=== PATIENT | male | born 1970 | race Caucasian/White ===

== ENCOUNTER 2019-07-05 16:51 | Emergency (ER) | payer SELFPAY ==
[2019-07-05] MEDS ORDERED: KETOROLAC 30 MG/ML INJ ONE (17:16)
--- NOTE | 2019-07-05 17:36 | ER ---
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 Transition of care: patient was not received from another setting of care. Onset of symptoms was July 05, 2019. Risk Assessment: Do you want to hurt yourself or someone else? Patient reports no desire to harm self or others. Initial Sepsis Screen: Does the patient meet any 2 criteria? No. Patient's initial sepsis screen is negative. Does the patient have a suspected source of infection? No. Patient's initial sepsis screen is negative. Care prior to arrival: None. 16:57 Method Of Arrival: Ambulatory la1 16:57 Acuity: LEISA 4 la1 Historical: - Allergies: 16:58 No Known Allergies; la1 - PMHx: 16:58 Hypertension; la1 - Immunization history:: Adult Immunizations up to date. - Social history:: Smoking status: Patient uses tobacco products, smokes one pack cigarettes per day. - Ebola Screening: : No symptoms or risks identified at this time. - Family history:: not pertinent. Screenin:15 Abuse screen: Denies threats or abuse. Nutritional screening: No deficits noted. aa5 Tuberculosis screening: No symptoms or risk factors identified. Fall Risk None identified. Assessment: 17:15 General: Appears uncomfortable, Behavior is calm, cooperative. Pain: Complains of pain aa5 in right shoulder Pain does not radiate. Pain currently is 3 out of 10 on a pain scale. Quality of pain is described as sharp, Is continuous. Neuro: Level of Consciousness is awake, alert, obeys commands, Oriented to person, place, time, situation. Cardiovascular: Patient's skin is warm and dry. Respiratory: Airway is patent Respiratory effort is even, unlabored, Respiratory pattern is regular, symmetrical. GI: No signs and/or symptoms were reported involving the gastrointestinal system. : No signs and/or symptoms were reported regarding the genitourinary system. EENT: No signs and/or symptoms were reported regarding the EENT system. Derm: Skin is pink, warm \T\ dry. Musculoskeletal: Reports pain in right shoulder. 18:10 Reassessment: Patient is alert, oriented x 3, equal unlabored respirations, skin aa5 warm/dry/pink. 18:10 Reassessment: sling applied to right arm. . aa5 Vital Signs: 16:59 BP 169 / 100; Pulse 82; Resp 16; Temp 98.6; Pulse Ox 98% on R/A; Weight 88.45 kg; la1 Height 5 ft. 4 in. (162.56 cm); Pain 3/10; 18:10 BP 168 / 80; Pulse 84; Resp 18 S; Pulse Ox 98% on R/A; aa5 16:59 Body Mass Index 33.47 (88.45 kg, 162.56 cm) la1 ED Course: 16:57 Patient arrived in ED. as 16:58 Triage completed. la1 16:58 Arm band placed on left wrist. la1 17:00 Joshua Greene MD is Attending Physician. danny 17:09 Sabina Mcdonald, JUANJO is Primary Nurse. aa5 17:15 Patient has correct armband on for positive identification. Bed in low position. Call aa5 light in reach. Side rails up X 1. 17:25 Shoulder Right (2 View) XRAY In Process Unspecified. EDMS 17:36 Esau Bolanos MD is Referral Physician. danny 18:10 No provider procedures requiring assistance completed. Patient did not have IV access aa5 during this emergency room visit. Administered Medications: 17:22 Drug: TORadol 60 mg Route: IM; Site: right gluteus; aa5 17:45 Follow up: Response: No adverse reaction aa5 Outcome: 17:36 Discharge ordered by . danny 18:10 Discharged to home ambulatory. aa5 18:10 Condition: stable 18:10 Discharge instructions given to patient, Instructed on discharge instructions, follow up and referral plans. medication usage, Demonstrated understanding of instructions, follow-up care, medications, Prescriptions given X 2. 18:18 Patient left the ED. la1 Signatures: Dispatcher [employer] EDFL Joshua Greene MD MD cha Martinez, Amelia as Calderon, Audri, RN RN aa5 Lucio Lance, RN RN la1
--- NOTE | 2019-07-05 17:37 | EDPHYS ---
Physician Documentation [facility] Name: Brett Joseph Age: 49 yrs Sex: Male : 1970 Arrival Date: 07/05/2019 Time: 16:57 Bed 7 Private MD: ED Physician Joshua Greene HPI: 07/05 17:06 This 49 yrs old Male presents to ER via Ambulatory with complaints of danny Shoulder Injury. 17:06 The patient or guardian complains of decreased range of motion, pain, tenderness. right danny shoulder and right clavicle. Context: The problem was sustained at work, resulted from lifting or carrying, a heavy object. Onset: The symptoms/episode began/occurred this morning. Modifying factors: the symptoms are alleviated by remaining still, The symptoms are aggravated by movement, rotation of arm. Associated signs and symptoms: The patient has no apparent associated signs or symptoms. Severity of symptoms: At their worst the symptoms were mild, moderate, in the emergency department the symptoms are unchanged. The patient has not experienced similar symptoms in the past. Historical: - Allergies: 16:58 No Known Allergies; la1 - PMHx: 16:58 Hypertension; la1 - Immunization history:: Adult Immunizations up to date. - Social history:: Smoking status: Patient uses tobacco products, smokes one pack cigarettes per day. - Ebola Screening: : No symptoms or risks identified at this time. - Family history:: not pertinent. ROS: 17:06 Constitutional: Negative for fever, chills, and weight loss, Eyes: Negative for injury, danny pain, redness, and discharge, ENT: Negative for injury, pain, and discharge, Neck: Negative for injury, pain, and swelling, Cardiovascular: Negative for chest pain, palpitations, and edema, Respiratory: Negative for shortness of breath, cough, wheezing, and pleuritic chest pain, Abdomen/GI: Negative for abdominal pain, nausea, vomiting, diarrhea, and constipation, Back: Negative for injury and pain, : Negative for injury, bleeding, discharge, and swelling, Skin: Negative for injury, rash, and discoloration, Neuro: Negative for headache, weakness, numbness, tingling, and seizure, Psych: Negative for depression, anxiety, suicide ideation, homicidal ideation, and hallucinations, Allergy/Immunology: Negative for hives, rash, and allergies, Endocrine: Negative for neck swelling, polydipsia, polyuria, polyphagia, and marked weight changes, Hematologic/Lymphatic: Negative for swollen nodes, abnormal bleeding, and unusual bruising. 17:06 MS/extremity: Positive for decreased range of motion, pain, tenderness, of the anterior aspect of right shoulder and posterior aspect of right shoulder. Exam: 17:06 Constitutional: This is a well developed, well nourished patient who is awake, alert, danny and in no acute distress. Head/Face: Normocephalic, atraumatic. Eyes: Pupils equal round and reactive to light, extra-ocular motions intact. Lids and lashes normal. Conjunctiva and sclera are non-icteric and not injected. Cornea within normal limits. Periorbital areas with no swelling, redness, or edema. ENT: Nares patent. No nasal discharge, no septal abnormalities noted. Tympanic membranes are normal and external auditory canals are clear. Oropharynx with no redness, swelling, or masses, exudates, or evidence of obstruction, uvula midline. Mucous membranes moist. Neck: Trachea midline, no thyromegaly or masses palpated, and no cervical lymphadenopathy. Supple, full range of motion without nuchal rigidity, or vertebral point tenderness. No Meningismus. Chest/axilla: Normal chest wall appearance and motion. Nontender with no deformity. No lesions are appreciated. Cardiovascular: Regular rate and rhythm with a normal S1 and S2. No gallops, murmurs, or rubs. Normal PMI, no JVD. No pulse deficits. Respiratory: Lungs have equal breath sounds bilaterally, clear to auscultation and percussion. No rales, rhonchi or wheezes noted. No increased work of breathing, no retractions or nasal flaring. Abdomen/GI: Soft, non-tender, with normal bowel sounds. No distension or tympany. No guarding or rebound. No evidence of tenderness throughout. Back: No spinal tenderness. No costovertebral tenderness. Full range of motion. Male : Normal genitalia with no discharge or lesions. Skin: Warm, dry with normal turgor. Normal color with no rashes, no lesions, and no evidence of cellulitis. Neuro: Awake and alert, GCS 15, oriented to person, place, time, and situation. Cranial nerves II-XII grossly intact. Motor strength 5/5 in all extremities. Sensory grossly intact. Cerebellar exam normal. Normal gait. Psych: Awake, alert, with orientation to person, place and time. Behavior, mood, and affect are within normal limits. 17:06 Musculoskeletal/extremity: ROM: limited active range of motion, limited passive range of motion, Circulation is intact in all extremities. Severe pain noted. Compartment Syndrome exam of affected extremity: is normal. DVT Exam: negative Homans' sign noted on exam, no appreciated bluish discoloration, no erythema, no increased warmth, pain, swelling, tenderness. Vital Signs: 16:59 BP 169 / 100; Pulse 82; Resp 16; Temp 98.6; Pulse Ox 98% on R/A; Weight 88.45 kg; la1 Height 5 ft. 4 in. (162.56 cm); Pain 3/10; 18:10 BP 168 / 80; Pulse 84; Resp 18 S; Pulse Ox 98% on R/A; aa5 16:59 Body Mass Index 33.47 (88.45 kg, 162.56 cm) la1 MDM: 17:00 Patient medically screened. [facility] 17:10 Data reviewed: vital signs, nurses notes, radiologic studies, plain films. [facility] 07/05 17:06 Order name: Shoulder Right (2 View) XRAY [facility] 07/05 17:06 Order name: Sling; Complete Time: 17:22 [facility] 07/05 17:06 Order name: Ice pack; Complete Time: 17:22 [facility] Administered Medications: 17:22 Drug: TORadol 60 mg Route: IM; Site: right gluteus; aa5 17:45 Follow up: Response: No adverse reaction aa5 Disposition: 07/05/19 17:36 Discharged to Home. Impression: Pain in right shoulder - ac contusion. - Condition is Stable. - Discharge Instructions: Shoulder Pain, Shoulder Pain, [id number], Surgery for Acromioclavicular Separation, Care After With Rehab-[facility]. - Prescriptions for Ibuprofen 600 mg Oral Tablet - take 1 tablet by ORAL route every 6 hours As needed take with food; 20 tablet. Tylenol- Codeine #3 300-30 mg Oral Tablet - take 2 tablet by ORAL route every 6 hours As needed; 30 tablet. - Medication Reconciliation Form, Thank You Letter, Antibiotic Education, Prescription Opioid Use, Work release form form. - Follow up: Esau Bolanos; When: 2 - 3 days; Reason: Recheck today's complaints, Continuance of care, Re-evaluation by your physician. - Problem is new. - Symptoms are unchanged. Signatures: Dispatcher [employer] Joshua Reardon MD MD cha Calderon, Audri, RN RN aa5 Lucio Lance RN RN la1 Corrections: (The following items were deleted from the chart) 18:18 17:36 07/05/2019 17:36 Discharged to Home. Impression: Pain in right shoulder - ac la1 contusion. Condition is Stable. Discharge Instructions: Shoulder Pain, Shoulder Pain, [id number], Surgery for Acromioclavicular Separation, Care After With Rehab-Sports[facility]. Prescriptions for Ibuprofen 600 mg Oral Tablet - take 1 tablet by ORAL route every 6 hours As needed take with food; 20 tablet, Tylenol-Codeine #3 300-30 mg Oral Tablet - take 2 tablet by ORAL route every 6 hours As needed; 30 tablet. and Forms are Medication Reconciliation Form, Thank You Letter, Antibiotic Education, Prescription Opioid Use. Follow up: Esau Bolanos; When: 2 - 3 days; Reason: Recheck today's complaints, Continuance of care, Re-evaluation by your physician. Problem is new. Symptoms are unchanged. danny
--- NOTE | 2019-07-05 18:19 | RAD REPORT ---
EXAM DESCRIPTION: Shoulder Right 2 View - 07/05/2019 5:28 pm CLINICAL HISTORY: Shoulder pain following trauma COMPARISON: None. TECHNIQUE: Internal and external rotation views of the right shoulder were obtained. FINDINGS: There is no fracture or dislocation. Prominent for age degenerative change at the AC join t with both inferiorly directed and superiorly directed spurs. There is slight narrowing of the acrom ial humeral joint space. No abnormal soft tissue calcifications. No acute chest finding on the right. No acute or suspicious findings. IMPRESSION: No fracture or dislocation. AC joint degenerative change with inferiorly directed spurring. Concerns for rotator cuff tear or other internal derangement can be addressed with MR imaging.
== END 2019-07-05 18:18 | disposition home or self-care (01) ==
LOC: ER 16:51
DX: S40.011A Contusion of right shoulder, initial encounter (principal); X50.0XXA Overexertion from strenuous movement or load, initial encounter; Y93.89 Activity, other specified; Y92.89 Other specified places as the place of occurrence of the external cause; Y99.8 Other external cause status; I10 Essential (primary) hypertension; F17.210 Nicotine dependence, cigarettes, uncomplicated
CPT/HCPCS: 96372; 99283

== ENCOUNTER 2019-09-30 02:35 | Inpatient (IN) | payer OTHER ==
[2019-09-30] MEDS ORDERED: ONDANSETRON 4 MG/2 ML VIAL ONE ×3 (02:44→11:01)
[2019-09-30] MEDS ORDERED: NA CHLORIDE 0.9% 1,000 ML ONE ×2 (02:44→10:47)
[2019-09-30 03:13] LABS: Absolute Lymphocytes (CBC) 1.3 K/uL (0.7-4.9); Basophils % 0.3 % (0-1.3); Hematocrit 46.9 % (39.6-49.0); Lymphocytes % 8.7 % (15.3-44.8); MPV 8.4 fL (7.6-11.3); RBC Red Blood Cell Count 5.15 M/uL (4.33-5.43)
[2019-09-30 03:36] LABS: ALT/SGPT 24 U/L (12-78); AST/SGOT 23 U/L (15-37); Albumin 3.2 g/dL (3.4-5.0); Alkaline Phosphatase 119 U/L (45-117); BUN Blood Urea Nitrogen 12 mg/dL (7-18); Bicarbonate 24 mmol/L (21-32); Bilirubin Direct 0.5 mg/dL (0-0.2); Bilirubin Total 1.5 mg/dL (0.2-1.0); Glucose Level 116 mg/dL (74-106); Lipase 35 U/L (73-393); Potassium 3.7 mmol/L (3.5-5.1); Protein, Total 7.4 g/dL (6.4-8.2); Sodium Level 136 mmol/L (136-145)
[2019-09-30] MEDS ORDERED: MORPHINE 4 MG/ML SYR ONE (03:54)
[2019-09-30] MEDS ORDERED: PIPER/TAZO/NS 3.375gm 3.375 GM/100 ML BAG ONE (04:47)
--- NOTE | 2019-09-30 05:12 | EDPHYS ---
Physician Documentation [facility] Name: Brett Joseph Age: 49 yrs Sex: Male : 1970 Arrival Date: 09/30/2019 Time: 02:38 Bed 8 Private MD: ED Physician Parag Kothari HPI: 09/30 03:01 This 49 yrs old Male presents to ER via EMS with complaints of abdominal pain.rn 03:01 The patient presents with abdominal pain in the lower abdomen. Onset: The rn symptoms/episode began/occurred 3 day(s) ago. The symptoms do not radiate. Associated signs and symptoms: Pertinent positives: nausea and vomiting, diarrhea, Pertinent negatives: fever, hematuria, shortness of breath, testicular pain, vomiting blood. The symptoms are described as achy, crampy. Modifying factors: The symptoms are alleviated by nothing, the symptoms are aggravated by touching the area. Severity of pain: At its worst the pain was moderate in the emergency department the pain is unchanged. The patient has not experienced similar symptoms in the past. The patient has not recently seen a physician. Historical: - Allergies: 02:33 No Known Allergies; jb4 - Home Meds: 02:33 metoprolol tartrate 25 mg Oral tab 1 tab 2 times per day [Active]; aspirin 81 mg Oral jb4 chew 1 tab once daily [Active]; clopidogrel 75 mg oral tab 1 tab once daily [Active]; atorvastatin 40 mg oral tab 1 tab once daily [Active]; ibuprofen 200 mg Oral tab 1 tab every 6 hours [Active]; - PMHx: 02:33 Hypertension; High Cholesterol; jb4 - PSHx: 02:33 Heart stents; jb4 - Immunization history:: Adult Immunizations up to date. - Social history:: Smoking status: Patient uses tobacco products, smokes one pack cigarettes per day. - Ebola Screening: : No symptoms or risks identified at this time. - Family history:: not pertinent. - Hospitalizations: : No recent hospitalization is reported. ROS: 03:01 Constitutional: Negative for fever, chills, and weight loss, Eyes: Negative for injury, rn pain, redness, and discharge, Cardiovascular: Negative for chest pain, palpitations, and edema, Respiratory: Negative for shortness of breath, cough, wheezing, and pleuritic chest pain, Abdomen/GI: Negative for constipation MS/Extremity: Negative for injury and deformity, Skin: Negative for injury, rash, and discoloration, Neuro: Negative for headache, weakness, numbness, tingling, and seizure. Exam: 03:01 Constitutional: This is a well developed, well nourished patient who is awake, alert rn Head/Face: Normocephalic, atraumatic. ENT: dry MM Cardiovascular: Tachycardic, regular, no murmur Respiratory: No increased work of breathing, no retractions or nasal flaring. Abdomen/GI: soft, + tender all across lower abdomen and periumbilical region, no masses, no rebound MS/ Extremity: Pulses equal, no cyanosis. Neurovascular intact. Full, normal range of motion. Equal circumference. Neuro: Awake and alert, GCS 15, oriented to person, place, time, and situation. Cranial nerves II-XII grossly intact. Motor strength 5/5 in all extremities. Sensory grossly intact. Cerebellar exam normal. Normal gait. Vital Signs: 02:33 BP 135 / 88; Pulse 105; Resp 18; Temp 98.8(O); Pulse Ox 99% on R/A; Weight 89.36 kg jb4 (R); Height 5 ft. 11 in. (180.34 cm); Pain 10/10; 04:18 BP 133 / 91; Pulse 102; Resp 18; Pulse Ox 100% ; ea 05:12 BP 130 / 80; Pulse 90; Resp 18; Pulse Ox 95% ; ea 06:46 BP 128 / 91; Pulse 97; Resp 18; Temp 98.7; Pulse Ox 100% ; ea 07:29 BP 103 / 71; Pulse 91; Resp 18; Pulse Ox 95% ; sv 02:33 Body Mass Index 27.48 (89.36 kg, 180.34 cm) jb4 MDM: 02:38 Patient medically screened. rn 05:07 Differential diagnosis: appendicitis. 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 Counseling: I had a detailed discussion with the patient and/or guardian regarding: the historical points, exam findings, and any diagnostic results supporting the discharge/admit diagnosis, lab results, radiology results, the need for further work-up and treatment in the hospital. Response to treatment: the patient's symptoms have mildly improved after treatment, and as a result, I will admit patient. Admission orders: after a detailed discussion of the patient's condition and case, the admit orders are written by me. ED course: Called Dr. Chaney, went to voicemail, left message, will admit to Dr. Matt given multiple comorbidities and on plavix. Abx given.. 09/30 02:39 Order name: Basic Metabolic Panel; Complete Time: 03:58 rn 09/30 02:39 Order name: CBC with Diff; Complete Time: 03:58 rn 09/30 02:39 Order name: Creatinine for Radiology; Complete Time: 03:58 rn 09/30 02:39 Order name: Hepatic Function; Complete Time: 03:58 rn 09/30 02:39 Order name: Lipase; Complete Time: 03:58 rn 09/30 06:12 Order name: CBC with Automated Diff EDMS 09/30 02:39 Order name: CT Abd/Pelvis - IV Contrast Only rn 09/30 06:12 Order name: CBC with Automated Diff EDMS 09/30 06:12 Order name: Comprehensive Metabolic Panel EDMS 09/30 06:12 Order name: Comprehensive Metabolic Panel EDMS 09/30 06:12 Order name: Magnesium EDMS 09/30 06:12 Order name: Magnesium EDMS 09/30 06:12 Order name: Phosphorus EDMS 09/30 06:12 Order name: Phosphorus EDMS 09/30 02:39 Order name: IV Saline Lock; Complete Time: 02:47 rn 09/30 02:39 Order name: Labs collected and sent; Complete Time: 02:47 rn 09/30 06:11 Order name: CONS Physician Consult EDMS 09/30 06:12 Order name: CONS Physician Consult EDMS 09/30 06:12 Order name: NPO EDMS 09/30 06:12 Order name: EKG Electrocardiogram EDMS 09/30 06:12 Order name: EKG Electrocardiogram EDMS 09/30 06:12 Order name: EKG Electrocardiogram EDMS Administered Medications: 02:47 Drug: Zofran 4 mg Route: IVP; Site: right antecubital; lp1 05:04 Follow up: Response: No adverse reaction ea 02:47 Drug: NS 0.9% 1000 ml Route: IV; Rate: 1000 ml; Site: right antecubital; lp1 05:00 Follow up: Response: No adverse reaction; IV Status: Completed infusion; IV Intake: ea 1000ml 05:00 Follow up: Response: No adverse reaction ea 04:16 Drug: morphine 4 mg {Note: RASS 1.} Route: IVP; Site: right antecubital; ea 05:04 Follow up: Response: No adverse reaction; Pain is decreased ea 06:49 Follow up: Response: No adverse reaction; Pain is decreased ea 04:55 Drug: Zosyn 3.375 grams Route: IVPB; Infused Over: 60 mins; Site: right antecubital; ea 05:55 Follow up: Response: No adverse reaction; IV Status: Completed infusion; IV Intake: ea 100ml Disposition: 09/30/19 05:11 Hospitalization ordered by Landry Matt for Inpatient Admission. Preliminary diagnosis are Acute appendicitis with localized peritonitis, Perforated appendicitis. - Bed requested for Telemetry/MedSurg (Inpatient). - Status is Inpatient Admission. sv - Condition is Stable. - Problem is new. - Symptoms have improved. UTI on Admission? No Signatures: Dispatcher [employer] EDMS Lupe Rodgers RN Roxanne Barreto RN Parag Ortega MD MD rn Pena, Laura, RN RN lp1 Mohamud Oliver RN RN jb4 Rosenda Seymour RN RN ea Corrections: (The following items were deleted from the chart) 07:35 05:11 Hospitalization Ordered by Landry Matt MD for Inpatient Admission. Preliminary dw diagnosis is Acute appendicitis with localized peritonitis; Perforated appendicitis. Bed requested for Telemetry/MedSurg (Inpatient). Status is Inpatient Admission. Condition is Stable. Problem is new. Symptoms have improved. UTI on Admission? No. rn 08:20 07:35 09/30/2019 05:11 Hospitalization Ordered by Landry Matt MD for Inpatient sv Admission. Preliminary diagnosis is Acute appendicitis with localized peritonitis; Perforated appendicitis. Bed requested for Telemetry/MedSurg (Inpatient). Status is Inpatient Admission. Condition is Stable. Problem is new. Symptoms have improved. UTI on Admission? No. dw
--- NOTE | 2019-09-30 05:12 | ER ---
Nurse's Notes [facility] Name: Brett Joseph Age: 49 yrs Sex: Male : 1970 Arrival Date: 09/30/2019 Time: 02:38 Bed 8 Private MD: Diagnosis: Acute appendicitis with localized peritonitis;Perforated appendicitis Presentation: 09/30 02:33 Presenting complaint: EMS states: PT reports having abdominal pain for the past couple jb4 of days. Tonight is worse. He is bloated in his lower abdomen, the pain is worse upon palpation. 02:33 Transition of care: patient was not received from another setting of care. Onset of jb4 symptoms was September 30, 2019. Risk Assessment: Do you want to hurt yourself or someone else? Patient reports no desire to harm self or others. Initial Sepsis Screen: Does the patient meet any 2 criteria? HR > 90 bpm. Yes Does the patient have a suspected source of infection? Yes: Acute abdominal pain. Care prior to arrival: None. 02:33 Method Of Arrival: EMS: BASF jb4 02:33 Acuity: LEISA 3 jb4 Historical: - Allergies: 02:33 No Known Allergies; jb4 - Home Meds: 02:33 metoprolol tartrate 25 mg Oral tab 1 tab 2 times per day [Active]; aspirin 81 mg Oral jb4 chew 1 tab once daily [Active]; clopidogrel 75 mg oral tab 1 tab once daily [Active]; atorvastatin 40 mg oral tab 1 tab once daily [Active]; ibuprofen 200 mg Oral tab 1 tab every 6 hours [Active]; - PMHx: 02:33 Hypertension; High Cholesterol; jb4 - PSHx: 02:33 Heart stents; jb4 - Immunization history:: Adult Immunizations up to date. - Social history:: Smoking status: Patient uses tobacco products, smokes one pack cigarettes per day. - Ebola Screening: : No symptoms or risks identified at this time. - Family history:: not pertinent. - Hospitalizations: : No recent hospitalization is reported. Screenin:17 Abuse screen: Denies threats or abuse. Nutritional screening: No deficits noted. ea Tuberculosis screening: No symptoms or risk factors identified. 03:17 Fall Risk IV access (20 points). ea Assessment: 03:15 General: Appears uncomfortable, Behavior is calm, cooperative, appropriate for age. ea Pain: Complains of pain in abdomen. Neuro: Level of Consciousness is awake, alert, obeys commands, Oriented to person, place, time, situation. Cardiovascular: Patient's skin is warm and dry. Respiratory: Airway is patent Respiratory effort is even, unlabored, Respiratory pattern is regular, symmetrical. GI: Abdomen is distended, Abdomen is tender to palpation in right lower quadrant and left lower quadrant. Derm: Skin is pale. 04:19 Reassessment: Patient and/or family updated on plan of care and expected duration. Pain ea level reassessed. Patient is alert, oriented x 3, equal unlabored respirations, skin warm/dry/pink. Pt returned from CT. 05:03 Reassessment: Patient and/or family updated on plan of care and expected duration. Pain ea level reassessed. Patient is alert, oriented x 3, equal unlabored respirations, skin warm/dry/pink. Pt reports pain has decreased. 05:13 Reassessment: Patient and/or family updated on plan of care and expected duration. Pain ea level reassessed. Patient is alert, oriented x 3, equal unlabored respirations, skin warm/dry/pink. Provider at bedside updating pt on plan of care. 06:19 Reassessment: Patient and/or family updated on plan of care and expected duration. Pain ea level reassessed. Patient is alert, oriented x 3, equal unlabored respirations, skin warm/dry/pink. 07:50 Reassessment: Dr Chaney at the bedside. sv Vital Signs: 02:33 BP 135 / 88; Pulse 105; Resp 18; Temp 98.8(O); Pulse Ox 99% on R/A; Weight 89.36 kg 4 (R); Height 5 ft. 11 in. (180.34 cm); Pain 10/10; 04:18 BP 133 / 91; Pulse 102; Resp 18; Pulse Ox 100% ; ea 05:12 BP 130 / 80; Pulse 90; Resp 18; Pulse Ox 95% ; ea 06:46 BP 128 / 91; Pulse 97; Resp 18; Temp 98.7; Pulse Ox 100% ; ea 07:29 BP 103 / 71; Pulse 91; Resp 18; Pulse Ox 95% ; sv 02:33 Body Mass Index 27.48 (89.36 kg, 180.34 cm) [facility] ED Course: 02:33 Arm band placed on right wrist. jb4 02:38 Patient arrived in ED. jb4 02:38 Parag Kothari MD is Attending Physician. rn 02:44 Triage completed. jb4 02:45 Inserted saline lock: 20 gauge in right antecubital area, using aseptic technique. ea Blood collected. 03:10 Radiology exam delayed due to lab results not completed at this time. (BUN/Creatinine). eh 03:15 Rosenda Seymour, RN is Primary Nurse. ea 03:17 Allergy band placed. Placed in gown. Bed in low position. Call light in reach. Side ea rails up X 1. 03:[address] via stretcher. eh 04:08 CT completed. Patient tolerated procedure well. Patient moved back from CT. eh 04:14 CT Abd/Pelvis - IV Contrast Only In Process Unspecified. EDNH 05:10 Landry Matt MD is Hospitalizing Provider. rn 05:13 No provider procedures requiring assistance completed. Patient admitted, IV remains in ea place. Administered Medications: 02:47 Drug: Zofran 4 mg Route: IVP; Site: right antecubital; lp1 05:04 Follow up: Response: No adverse reaction ea 02:47 Drug: NS 0.9% 1000 ml Route: IV; Rate: 1000 ml; Site: right antecubital; lp1 05:00 Follow up: Response: No adverse reaction; IV Status: Completed infusion; IV Intake: ea 1000ml 05:00 Follow up: Response: No adverse reaction ea 04:16 Drug: morphine 4 mg {Note: RASS 1.} Route: IVP; Site: right antecubital; ea 05:04 Follow up: Response: No adverse reaction; Pain is decreased ea 06:49 Follow up: Response: No adverse reaction; Pain is decreased ea 04:55 Drug: Zosyn 3.375 grams Route: IVPB; Infused Over: 60 mins; Site: right antecubital; ea 05:55 Follow up: Response: No adverse reaction; IV Status: Completed infusion; IV Intake: ea 100ml Intake: 05:00 IV: 1000ml; Total: 1000ml. ea 05:55 IV: 100ml; Total: 1100ml. ea Outcome: 05:11 Decision to Hospitalize by Provider. rn 05:15 Instructed on the need for admit, Demonstrated understanding of instructions. ea 07:54 Admitted to Med/surg accompanied by tech, via stretcher, room 404, with chart, Report sv called to Lali GEIGER 07:54 Condition: stable 08:20 Patient left the ED. sv Signatures: Dispatcher [employer] Lupe Rm, RN RN Brad Membreno Roman, MD MD rn Pena, Laura, RN RN lp1 Mohamud Oliver RN RN jb4 Rosenda Seymour RN RN ea Corrections: (The following items were deleted from the chart) 04:17 04:16 morphine 4 mg IVP in right antecubital ea ea
[2019-09-30] MEDS ORDERED: ACETAMINOPHEN 650MG/RECT SUPP PR PRN (06:03)
[2019-09-30] MEDS ORDERED: ACETAMINOPHEN 500 MG TAB PO PRN (06:03)
--- NOTE | 2019-09-30 07:26 | P.HP ---
Certification for Inpatient Patient admitted to: Inpatient With expected LOS: >2 Midnights Patient will require the following post-hospital care: None Practitioner: I am a practitioner with admitting privileges, knowledge of patient current condition, hospital course, and medical plan of care. Services: Services provided to patient in accordance with Admission requirements found in Title 42 Section 412.3 of the Code of Federal Regulations Patient History Date of Service: 09/30/19 Reason for admission: Perforated appendix; history of Coronary artery disease History of Present Illness: Patient is a 49-year-old gentleman who came to the hospital with abdominal discomfort. He has been working on a tugboat. He is originally from [place]. He gets all his healthcare in the [place] area. He presents to the emergency room with 2 days of abdominal pain. He originally thought it was constipation. His symptoms were not improving so he came into the ER in his workup revealed a perforated appendix. He has history of Coronary artery disease and had stents placed in 2014. He has been on Plavix since that time. He took his Plavix last night at 9:00 p.m.. Will go ahead and Consult general surgery. Patient will need surgical intervention. We will place on IV antibiotics. Cardiology consultation will also be obtained. - Past Medical/Surgical History -: Coronary artery disease -: Hypertension -: Dyslipidemia -: Cardiac catheterization with stent placement - Family History Father Family History: Reviewed- Non-Contributory - Social History Smoking Status: Current some day smoker (A pack-a-day) Alcohol use: No CD- Drugs: No Review of Systems 10-point ROS is otherwise unremarkable Physical Examination - Vital Signs Temperature: 99 F Blood Pressure: 140/70 Pulse: 88 Respirations: 18 Pulse Ox (%): 98 - Physical Exam General: Alert, In no apparent distress, Oriented x3 HEENT: Atraumatic, PERRLA, Mucous membr. moist/pink, EOMI, Sclerae nonicteric Neck: Supple, 2+ carotid pulse no bruit, No LAD, Without JVD or thyroid abnormality Respiratory: Clear to auscultation bilaterally, Normal air movement Cardiovascular: Regular rate/rhythm, Normal S1 S2, No murmurs Gastrointestinal: Normal bowel sounds, Soft and benign, Non-distended, No rebound, No guarding, Tenderness (Bilateral lower quadrant) Musculoskeletal: No clubbing, No swelling, No tenderness Integumentary: No rashes Neurological: Normal gait, Normal speech, Normal strength at 5/5 x4 extr, Normal tone, Sensation intact, Cranial nerves 3-12 intact, Normal affect Lymphatics: No axilla or inguinal lymphadenopathy - Studies Laboratory Data (last 24 hrs) 09/30/19 02:50: Creatinine 0.88 09/30/19 02:50: WBC 15.1 H, Hgb 16.2, Hct 46.9, Plt Count 189 09/30/19 02:50: Sodium 136, Potassium 3.7, BUN 12, Creatinine 0.86, Glucose 116 H, Total Bilirubin 1.5 H, AST 23, ALT 24, Alkaline Phosphatase 119 H, Lipase 35 L Assessment & Plan - Problems (Diagnosis) (1) Perforated appendix Current Visit: Yes Status: Acute (2) Coronary artery disease Current Visit: Yes Status: Acute Qualifiers: Coronary Disease-Associated Artery/Lesion type: [place] artery (3) Hypertension Current Visit: Yes Status: Acute Qualifiers: Hypertension type: essential hypertension Qualified Code(s): I10 - Essential (primary) hypertension (4) Dyslipidemia Current Visit: Yes Status: Acute (5) Tobacco use Current Visit: Yes Status: Acute - Plan 1. Continue with IV hydration 2. Continue with IV antibiotics 3. Continue with pain control 4. NPO for possible surgical intervention 5. General surgery consultation; also obtain cardiology consultation 6. Serial H&H, and we will monitor CBC, BMP, LFTs and lipase along with electrolytes. 7. Patient did take Plavix last night so we may need to hold surgery for 24-48 hr. However if deemed absolute emergency then patient is low to moderate risk for cardiopulmonary complications. However, benefits outweigh the risks so would recommend proceeding with surgery as he is not having any chest pain or cardiac symptoms. 8. GI and DVT prophylaxis Discharge Plan: Home Plan to discharge in: Greater than 2 days - Advance Directives Does patient have a Living Will: No Does patient have a Durable POA for Healthcare: No - Code Status/Comfort Care Code Status Assessed: Yes Code Status: Full Code Critical Care: No Time Spent Managing PTS Care (In Minutes): 45
[2019-09-30] MEDS: HYDROMORPHONE HCL 0.5 MG/0.5 ML INJ IV PRN ×3 (08:42→18:30)
[2019-09-30] MEDS: ONDANSETRON 4 MG/2 ML VIAL IV SCH ×2 (08:43→11:00)
[2019-09-30] MEDS: NA CHLORIDE 0.9% 1,000 ML IV SCH ×4 (08:43→16:09)
[2019-09-30] MEDS ORDERED: CEFOXITIN/SWI 1gm 1 GM/10 ML SYR ONE (09:04)
[2019-09-30] MEDS ORDERED: PROPOFOL 200 MG/20 ML VIAL IV ONE (09:23)
[2019-09-30] MEDS ORDERED: LIDOCAINE 2% MPF 5 ML VIAL ONE (09:23)
[2019-09-30] MEDS ORDERED: MIDAZOLAM HCL 2 MG/2 ML INJ ONE (09:24)
[2019-09-30] MEDS ORDERED: ROCURONIUM 50 MG/5 ML VIAL IV ONE (09:24)
[2019-09-30] MEDS ORDERED: FENTANYL CITR 100 MCG/2 ML ONE ×3 (09:24→10:32)
[2019-09-30] MEDS ORDERED: NEOSTIGMINE 1 MG/ML -5 ML ONE (09:25)
[2019-09-30] MEDS ORDERED: GLYCOPYRROLATE 0.2 MG/ML SYR ONE (09:25)
[2019-09-30 09:39] VITALS: BMI 27.4
[2019-09-30] MEDS ORDERED: SUCCINYLCHOLINE 20 MG/ML (10 ML) IV ONE (09:55)
[2019-09-30 10:45] LABS: Urine Appearance CLEAR; Urine Blood NEGATIVE (NEG); Urine Color ORANGE; Urine Glucose NEGATIVE (NEG); Urine Protein 1+ (NEG); Urine Specific Gravity >=1.030 (1.005-1.030); Urine pH 5.5 (5.0-7.0)
[2019-09-30 10:50] LABS: Urine Bilirubin 3+ (NEG); Urine Microscopic Reflex ORDER UMIC
--- NOTE | 2019-09-30 10:56 | RAD REPORT ---
EXAM DESCRIPTION: CT - Abdomen Pelvis W Contrast - 09/30/2019 7:01 am ADDENDUM #1 THIS REPORT CONTAINS FINDINGS THAT MAY BE CRITICAL TO PATIENT CARE: The findings were verbally discussed via telephone conference with Dr. Parag Kothari by Dr. Tate Soto on 09/30 4:41 AM FOUNDRY SUPERINTENDANT .The results were acknowledged and understood. Electronically signed by: Enma Soto MD 09/30/2019 4:42 AM FOUNDRY SUPERINTENDANT End of Addendum EXAM DESCRIPTION: CT Abdomen and Pelvis With Intravenous Contrast CLINICAL HISTORY: The patient is 49 years old and is Male; lower abd pain for 3 days, worse today;Ab d pain TECHNIQUE: Axial computed tomography images of the abdomen and pelvis with intravenous contrast. S agittal and coronal reformatted images were created and reviewed. This CT exam was performed using one or more of the following dose reduction techniques: automated exposure control, adjustment of t he mA and/or kV according to patient size, and/or use of iterative reconstruction technique. COMPARISON: No relevant prior studies available. FINDINGS: LUNG BASES: Unremarkable. No mass. No consolidation. MEDIASTINUM: A small hiatal hernia is present. ABDOMEN: LIVER: There is a diffuse decrease in hepatic parenchymal density, consistent with fatty infiltr ation. The liver is enlarged. GALLBLADDER AND BILE DUCTS: No calcified stones. No ductal dilation. PANCREAS: The pancreas is atrophic. SPLEEN: Several splenic granuloma are present. ADRENALS: Hyperplasia of the adrenal glands is noted. KIDNEYS AND URETERS: Unremarkable. The kidneys enhance symmetrically. No obstructing renal or ur eteral calculus is seen. No hydronephrosis or hydroureter. No perinephric fluid or stranding. STOMACH AND BOWEL: The stomach is minimally fluid filled. The small bowel is relatively normal i n caliber proximally. Distally, the small bowel is fluid-filled with mild mucosal thickening. Stool i s noted throughout the colon. There is no bowel obstruction. PELVIS: APPENDIX: The appendix is dilated measuring up to 2 cm. Significant surrounding inflammatory str anding and fluid is present. Mucosal thickening of the appendiceal wall is noted. Few punctate foci o f free air near the base of the appendix are present. BLADDER: Unremarkable. No mass. REPRODUCTIVE: Unremarkable as visualized. ABDOMEN and PELVIS: INTRAPERITONEAL SPACE: Inflammatory stranding and fluid is present within the right lower quadra nt extending into the pelvis. BONES/JOINTS: No acute fracture. SOFT TISSUES: The soft tissues are normal. VASCULATURE: Atherosclerosis of the vasculature is present. No abdominal aortic aneurysm. LYMPH NODES: Unremarkable. No enlarged lymph nodes. IMPRESSION: Findings suggestive of acute perforated appendicitis. There is no evidence of periappend iceal abscess at this time. Electronically signed by: Enma Soto MD 09/30/2019 4:39 AM FOUNDRY SUPERINTENDANT Due to temporary technical issues with the PACS/Fluency reporting system, reports are being signed by the in house radiologist as a courtesy to ensure prompt reporting. The interpreting radiologist is f ully responsible for the content of the report.
--- NOTE | 2019-09-30 11:11 | P.BOP ---
Preoperative diagnosis: perforated appendicitis, peritonitis Postoperative diagnosis: same with large intrabominal multiple abscess Primary procedure: 1. Laparocopic perforated appendectomy Secondary procedure: 2. Drainage of intrabdominal abscess Estimated blood loss: <20cc Specimen: pus culture, necrotic appendix Findings: large intraabdominal abscess Anesthesia: General Complications: None Drain(s): ANA drain (x 2) Transferred to: Recovery Room Condition: Good
[2019-09-30 11:59] LABS: Urine Bacteria <20 /HPF (NONE SEEN); Urine Culture Reflex Order NOT NEEDED; Urine RBC <5 /HPF (NONE SEEN)
[2019-09-30] MEDS ORDERED: CEFOXITIN SODIUM 1 GM/VIAL IVPB SCH (12:00)
[2019-09-30] MEDS ORDERED: CEFOXITIN/SWI 1gm 1 GM/10 ML SYR IV SCH (12:00)
[2019-09-30] MEDS ORDERED: Levofloxacin 750mg IV 750 MG/150 ML BAG IV SCH (12:00)
--- NOTE | 2019-09-30 12:48 | EKG ---
Test Date: 2019-09-30 Test Time: 07:32:07 Transplant Immunologist: LIZ MEASUREMENT RESULTS: Intervals: Rate: 93 RI: 184 QRSD: 80 QT: 336 QTc: 417 [place]: P: 58 RI: 184 QRS: 4 T: 40 INTERPRETIVE STATEMENTS: Normal sinus rhythm Nonspecific T wave abnormality Abnormal ECG No previous ECG available for comparison Electronically Signed On 09-30-19 12:48:13 CUT OFF MACHINE OPERATOR by Baldo Booth
[2019-09-30] MEDS: PIPER/TAZO/NS 3.375gm 3.375 GM/100 ML BAG IVPB SCH ×2 (12:52→16:10)
--- NOTE | 2019-09-30 13:59 | CON ---
History Of Present Illness: Mr. Joseph is 49. He came to the hospital with abdominal pain, was fo und to have ruptured appendix and after emergency surgery, seems to be doing well. I am consulted be cause he has a past history of coronary heart disease. He had stents placed in his heart in 2014, th at was in [place]. We do not have any of those records. The patient said it was put in the maker, 2 stents in the same artery associated with unstable angina. Since then, he has had stress te sts and other tests that seemed to indicate he was doing fine. He is not having angina. Medications: Outpatient medications had been metoprolol, aspirin, clopidogrel, and atorvastatin. Social History: He continues to smoke. Does not use illegal drugs or alcohol. Physical Examination: Vital Signs: 5 feet 11 inches, 196 pounds. Blood pressure 140/81, heart rate 102. HEENT: Unremarkable. Lungs: Clear. Cardiac: Within normal limits. Extremities: No cyanosis, clubbing, or edema. Regarding the Plavix, I would not give him any more at this point. Low-dose Lovenox can be used to p revent deep vein thrombosis with the indication for him to be on Plavix no longer exist and he is not unstable in any way regarding his heart. I will keep an eye on him. At some point, we would like t o re-establish therapy with atorvastatin and metoprolol and aspirin. Thank you very much for your kind referral of Mr. Joseph. I will follow him with you. RENEE Voice ID: [id number] Report ID: [id number]
--- NOTE | 2019-09-30 14:46 | CON ---
Date of Consultation: 09/30/2019 Diagnoses: Perforated appendix, acute appendicitis, history of heart disease. History Of Present Illness: This is the case of a 49-year-old patient, with least 2 days history of abdominal pain. He thought it was just constipation, so he did not do much about it. He is original ly from [place]. 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 Patient diagnosed with a perforated appendicitis. Surgical consult was obtained. Patient den ies any dysuria, hematuria, hematochezia, or melena. Denies any recent travelling out of the country . Denies any family members sick at home. Patient advised the importance of colonoscopies since he has not had one. Past Medical History: CAD, hypertension, dyslipidemia. Surgeries: Cardiac cath with stent placement. Medication: Reviewed including Plavix. Family History: Noncontributory. Social History: Patient smokes pack a day. Does not drink alcohol. Allergies: NONE. Review of Systems: Ten points otherwise unremarkable. Physical Examination: General: Patient is awake and alert. HEENT: Pupils are equal and reactive, anicteric. Neck: Supple. Chest: Clear. Abdomen: Right lower quadrant tenderness with guarding and rebound. Rovsing sign positive. Periton itis. Rectal and genitalia: Deferred. Extremities: Good capillary refill. Laboratory Data: Blood work shows a WBC count of 15.1 with hemoglobin of 16.2 and platelets 189. So dium is 136, potassium 3.7. Total bilirubin 1.5, alkaline phosphate 119, lipase 35. CAT scan of the abdomen and pelvis shows appendicitis. Appendix distended with periappendiceal fluid and small amou nt of bubble in that area interpreted by the radiologist as acute perforated appendicitis. Assessment And Plan: This is a 49-year-old patient with multiple medical problems including heart di sease, with perforated appendicitis. Patient was emergently seen and advised to do laparoscopic poss ible open appendectomy with benefits, alternatives, and risks including, but not limited to infection , bleeding, damage to adjacent structures as complication, abscess, myocardial infarction, even . He also understands this may not relieve his symptoms. He might need more than one surgical inter vention. He understood and signed a consent. SASHA Voice ID: [id number] Report ID: [id number]
[2019-09-30] MEDS: ENOXAPARIN 30 MG/0.3 ML SQ SCH (16:09)
--- NOTE | 2019-09-30 18:37 | P.PN ---
Date of Service: 09/30/19 Patient seen and examined. Operative notes reviewed. Patient noted to have necrotic, perforated appendix and large intra-abdominal abscess intra-op. Appendix resected. Intra-abdominal abscess drained and multiple drains left in place. Continue IV Zosyn Patient kept NPO. Pain medications as needed. General surgery to follow.
--- NOTE | 2019-09-30 19:28 | CON ---
History Of Present Illness: This is a 49-year-old male coming in, I was consulted for ruptured appen cuco and possible abscess formation, which has been cleaned out this morning. 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 Past Medical History: Patient denies any other medical problems in the past, except coronary artery disease with cardiac stent placement, dyslipidemia, hypertension. Social History: Tobacco positive. Alcohol negative. Family History: Noncontributory. Medications: Zosyn. See MAR for other medications. Allergies: NO KNOWN DRUG ALLERGIES. Review of Systems: 10-point review was performed. Physical Examination: General: This is a 49-year-old male, lying in bed, not in any acute cardiopulmonary distress. Vital Signs: Temperature 97, pulse 91, respirations 18, blood pressure 139/88. HEENT: Unremarkable. Neck: Supple. Lungs: Clear to auscultation. Heart: S1, S2. Regular. Abdomen: Surgical wounds under dressing and ANA drains in place. Extremities: No edema. Laboratory Data: WBC 15,000, hemoglobin 16.2, platelets are 189. Chemistry shows sodium 136, potass ium 3.7, chloride 103, bicarb 24, BUN 12, creatinine 0.8, glucose is 116. Total bilirubin is 1.5, al kaline phosphatase is 119, albumin is 3.2. Assessment And Plan: Status post ruptured appendix and removal. Patient has undergone surgical I an d D and now with antibiotic treatment, total course of 2 weeks. Leukocytosis, malnourished, and elev ated liver function tests. Continue supportive care. We will follow patient closely. NF/MODL Voice ID: [id number] Report ID: [id number]
[2019-09-30] MEDS ORDERED: KCL 20 MEQ/100 mL IVPB 20 MEQ/100 ML BAG IV SCH (20:00)
[2019-10-01] MEDS: PIPER/TAZO/NS 3.375gm 3.375 GM/100 ML BAG IVPB SCH ×3 (00:11→16:38)
[2019-10-01] MEDS: HYDROMORPHONE HCL 0.5 MG/0.5 ML INJ IV PRN ×5 (00:11→19:53)
--- NOTE | 2019-10-01 02:36 | OP ---
Date of Procedure: 09/30/2019 Surgeon: Chuy Chaney MD Preoperative Diagnoses: Perforated appendicitis, peritonitis, cardiac disease. Postoperative Diagnoses: Perforated appendicitis, peritonitis, cardiac disease with large intraabdom inal generalized abscess. Procedure Performed: Laparoscopic perforated appendectomy, drainage of intraabdominal diffuse absces s. Estimated Blood Loss: Less than 20 mL. Specimen: Pus and necrotic appendix. Findings: A large intraabdominal abscess, all the quadrants are involved with this when I made the i ncision in his belly. Just by making incision pus started coming out of his abdominal cavity. When we went to the area we noticed mid necrotic appendix perforated. Profuse irrigation with several lit ers of saline have to be done in order to clean his abdomen and then two drains in. Indications: This is the case of a 49-year-old patient from out of town, comes to us this morning wi th ruptured appendix, that has been hurting for several days. The patient has history of heart disea se immediately taken to the OR with benefits, alternatives, and risks of laparoscopic, possible open appendectomy fully explained to the patient, which include but are not limited to infection, bleeding , damage to adjacent structures, anesthesia complications, recurrence, intraabdominal abscess, TX, an d even . He also understands this may not relieve any symptoms. He might need more than one gnan rgical intervention. He understands also the life-threatening condition of ruptured appendix what th at entailed and the spillage of a life-threatening bacteria in his abdomen. He understands he will b e in the hospital for about 5-7 days at least. He signed the consent. Description Of Procedure: Patient was brought to the operating room, placed in supine position. Ane sthesia was done without complication. Abdominal area was prepped and draped in sterile fashion. Ma rcaine 0.5% was injected for local anesthetic, followed by sharp incision of the skin in the infraumb ilical region. Incision was carried down to fascia, which was opened under direct vision. Peritoneu m was encountered, opened under direct vision. Immediately pus was obtained through the incision. V icryl #1 placed inside the fascia. Lora trocar was carefully introduced. No bleeding was obtained . Once we put the cameras, we noticed pus everywhere, liquid and already with fibrin, so we placed 2 more trocars under direct visualization 5 mm each one of them, suprapubic and left lower quadrant. Once we did that, we were able to clean the abdomen with several liters of saline. This allowed me t o take a look at the area of the right lower quadrant and indeed it is ruptured appendix. It is a ne crotic appendix. The base of the appendix seems to be spared, so I create a window in the base of th e appendix, transected that with an Endo ZANDRA 45 mm 3.5, and the mesoappendix with an Endo ZANDRA 45 mm 2 .5. The area was profusely irrigated again until clear. Appendix removed from abdominal cavity usin g an EndoCatch through umbilical incision. Once again, we just put enough water there until the wate r come out clear. Just because of all that disease, I put 2 ANA drains coming out through one of the trocar sites. At that moment, I proceeded to remove the trocars under direct vision. Deflated the p neumoperitoneum. Closed the fascia with #1 Vicryl. Irrigated subcutaneous tissue, closed that with rosangela. Sponge count and instrument counts were correct. This patient will require long-term antib iotics, will require Infectious Disease evaluation, will require n.p.o. for the next several days unt il this area resolved, we expect a prolonged ileus and we might have to take him back to surgery to o nce again irrigate his abdomen. SARIKA/GEO Voice ID: [id number] Report ID: [id number]
[2019-10-01] MEDS: NA CHLORIDE 0.9% 1,000 ML IV SCH ×3 (03:00→23:00)
[2019-10-01 04:34] LABS: Basophils % 0.1 % (0-1.3); Hematocrit 40.2 % (39.6-49.0); Lymphocytes % 7.6 % (15.3-44.8); MPV 8.7 fL (7.6-11.3); RBC Red Blood Cell Count 4.31 M/uL (4.33-5.43)
[2019-10-01 04:40] LABS: ALT/SGPT 19 U/L (12-78); AST/SGOT 20 U/L (15-37); Albumin 2.2 g/dL (3.4-5.0); Alkaline Phosphatase 76 U/L (45-117); BUN Blood Urea Nitrogen 22 mg/dL (7-18); Bicarbonate 24 mmol/L (21-32); Bilirubin Total 2.9 mg/dL (0.2-1.0); Glucose Level 104 mg/dL (74-106); Magnesium 1.9 mg/dL (1.8-2.4); Potassium 4.4 mmol/L (3.5-5.1); Protein, Total 5.9 g/dL (6.4-8.2); Sodium Level 140 mmol/L (136-145)
[2019-10-01] MEDS ORDERED: POTASSIUM PHOS IN 0.9 % NACL 15 MMOL/250 ML BAG IV ONE (09:00)
--- NOTE | 2019-10-01 11:54 | P.PN ---
Subjective Date of Service: 10/01/19 Chief Complaint: Perforated appendix; history of Coronary artery disease Status post appendectomy yesterday, patient noted to have intra-abdominal abscess. He has multiple drains in place for further drainage post-op. He is complaining of abdominal pain. He has been a fever. White cell count has trended down. He is kept NPO. Physical Examination - Vital Signs Temperature: 97.5 F Blood Pressure: 142/88 Pulse: 89 Respirations: 18 Pulse Ox (%): 91 - Physical Exam General: Alert, In no apparent distress, Oriented x3 HEENT: Mucous membr. moist/pink Neck: Supple, JVD not distended Respiratory: Clear to auscultation bilaterally, Normal air movement Cardiovascular: No edema, Normal pulses, Regular rate/rhythm, Normal S1 S2 Gastrointestinal: Hypoactive, Tenderness (Diffuse) Musculoskeletal: No swelling, No erythema, No tenderness Integumentary: No rashes, No erythema Neurological: Normal speech, Normal strength at 5/5 x4 extr Assessment And Plan - Current Problems (Diagnosis) (1) Intra-abdominal abscess Current Visit: Yes Status: Acute (2) Coronary artery disease Current Visit: Yes Status: Acute Qualifiers: Coronary Disease-Associated Artery/Lesion type: [place] artery (3) Hypertension Current Visit: Yes Status: Acute Qualifiers: Hypertension type: essential hypertension Qualified Code(s): I10 - Essential (primary) hypertension (4) Perforated appendix Current Visit: Yes Status: Acute - Plan Continue IV hydration and aggressive IV antibiotic therapy. Follow cultures. Consulted infectious disease requested. Serial abdominal examination General surgery-Dr. Chaney is following and managing. IV hydromorphone p.r.n. for pain. Monitor CBC and BMP DVT prophylaxis. Diet advancement per Dr. Chaney.
[2019-10-01] MEDS: ENOXAPARIN 30 MG/0.3 ML SQ SCH (17:19)
--- NOTE | 2019-10-01 17:24 | EKG ---
Test Date: 2019-10-01 Test Time: 07:28:42 Coke Loader: LIZ MEASUREMENT RESULTS: Intervals: Rate: 89 RI: 178 QRSD: 76 QT: 342 QTc: 416 [place]: P: 33 RI: 178 QRS: 1 T: 38 INTERPRETIVE STATEMENTS: Normal sinus rhythm Nonspecific T wave abnormality Abnormal ECG Compared to ECG 09/30/2019 07:32:07 No significant changes Electronically Signed On 10-01-19 17:21:49 PURCHASING MANAGER/SALES by Mikey Almaguer
[2019-10-01] MEDS: ONDANSETRON 4 MG/2 ML VIAL IV PRN (19:53)
--- NOTE | 2019-10-01 21:02 | PN ---
Subjective: Patient is lying in bed. No new acute event. Chart reviewed. Denies any headache, [place], vomiting, chest pain, abdominal pain, constipation, or diarrhea. Objective: Vital Signs: Temperature 98, pulse 94, respiration 19, blood pressure 150/85. No change s in examination. Lab Data: WBC 13.5, hemoglobin 13.3, platelets are 172. Chemistry shows sodium 140, potassium 4.4, chloride 108, bicarb 24, BUN 22, creatinine 0.8, glucose is 104. Wound culture and body fluid cultur es are growing 1+ gram negative rods. Patient is currently on Zosyn. Assessment And Plan: Status post appendix rupture and surgical debridement. Patient's leukocytosis is improving. Continue antibiotic, total course of 2 to 3 weeks. Leukocytosis. Continue supportive care and wound care. We will follow patient as needed. NF/MODL Voice ID: [id number] Report ID: [id number]
--- NOTE | 2019-10-02 00:03 | PN ---
Date of Progress Note: 10/01/2019 History: Mr. Joseph was admitted by Dr. Herrera on 09/30/2019, and seen by Dr. Booth. He was anibal red for surgery for perforated appendix by Dr. Chaney. He underwent the surgery, did well postoper atively. There are no arrhythmias, there is no evidence of congestive heart failure or coronary eliud ry disease exacerbation. Mr. Joseph lives in [place], he is just on a work assignment here. He had a stent in 2014. Since the stent from a cardiac standpoint, they were unremarkable. From our [facility], we will sign off his case. Whenever he goes home, he needs to get back on the beta charlette s, statin, and an aspirin. We will be available for questions if the need arise. DEBBY/GEO Voice ID: [id number] Report ID: [id number]
[2019-10-02] MEDS: PIPER/TAZO/NS 3.375gm 3.375 GM/100 ML BAG IVPB SCH ×3 (00:35→16:28)
[2019-10-02] MEDS: HYDROMORPHONE HCL 0.5 MG/0.5 ML INJ IV PRN ×5 (01:42→23:28)
[2019-10-02] MEDS ORDERED: PANTOPRAZOLE 40 MG INJ IVP ONE (02:01)
[2019-10-02] MEDS ORDERED: SODIUM CHLORIDE 0.9% 10ML INJ IV PRN (02:01)
[2019-10-02 04:35] LABS: BUN Blood Urea Nitrogen 24 mg/dL (7-18); Bicarbonate 25 mmol/L (21-32); Glucose Level 115 mg/dL (74-106); Sodium Level 142 mmol/L (136-145)
[2019-10-02 05:02] LABS: Absolute Lymphocytes (CBC) 0.8 K/uL (0.7-4.9); Basophils % 0.2 % (0-1.3); Hematocrit 41.9 % (39.6-49.0); Lymphocytes % 5.3 % (15.3-44.8); MPV 8.8 fL (7.6-11.3); RBC Red Blood Cell Count 4.51 M/uL (4.33-5.43)
[2019-10-02] MEDS ORDERED: FAMOTIDINE 20 MG/2 ML VIAL IV SCH (06:00)
[2019-10-02] MEDS: NA CHLORIDE 0.9% 1,000 ML IV SCH ×4 (07:58→19:00)
[2019-10-02] MEDS: PANTOPRAZOLE 40 MG INJ IVP SCH ×2 (08:56→23:28)
--- NOTE | 2019-10-02 13:25 | P.PN ---
Subjective Date of Service: 10/02/19 Chief Complaint: Perforated appendix; history of Coronary artery disease Subjective: No new changes Patient denies any flatus. No BM. He has been afebrile. Physical Examination - Vital Signs Temperature: 97.0 F Blood Pressure: 140/92 Pulse: 94 Respirations: 19 Pulse Ox (%): 91 - Physical Exam General: Alert, In no apparent distress, Oriented x3 HEENT: Mucous membr. moist/pink Neck: Supple, JVD not distended Respiratory: Clear to auscultation bilaterally, Normal air movement Cardiovascular: No edema, Normal pulses, Regular rate/rhythm, Normal S1 S2 Gastrointestinal: Hypoactive, Non-distended, Other (Multiple peritoneal drainages is in place.) Musculoskeletal: No swelling Integumentary: No rashes Neurological: Normal speech, Normal strength at 5/5 x4 extr Assessment And Plan - Current Problems (Diagnosis) (1) Intra-abdominal abscess Current Visit: Yes Status: Acute (2) Coronary artery disease Current Visit: Yes Status: Acute Qualifiers: Coronary Disease-Associated Artery/Lesion type: [place] artery (3) Hypertension Current Visit: Yes Status: Acute Qualifiers: Hypertension type: essential hypertension Qualified Code(s): I10 - Essential (primary) hypertension (4) Perforated appendix Current Visit: Yes Status: Acute - Plan Continue IV hydration and aggressive IV antibiotic therapy. Abscess culture growing Pseudomonas. Dr. Penn's input appreciated. The patient is slated for 2-3 weeks of IV antibiotics Continue IV Zosyn Serial abdominal examination General surgery-Dr. Chaney is following and managing. IV hydromorphone p.r.n. for pain. Monitor CBC and BMP DVT prophylaxis. Diet advancement per Dr. Chaney.
[2019-10-02 14:15] LABS: Magnesium 2.3 mg/dL (1.8-2.4); Phosphorus 1.5 mg/dL (2.5-4.9)
[2019-10-02] MEDS: ENOXAPARIN 30 MG/0.3 ML SQ SCH (16:28)
[2019-10-03] MEDS: PIPER/TAZO/NS 3.375gm 3.375 GM/100 ML BAG IVPB SCH ×3 (01:49→17:18)
[2019-10-03] MEDS: HYDROMORPHONE HCL 0.5 MG/0.5 ML INJ IV PRN ×5 (04:19→21:07)
[2019-10-03] MEDS: NA CHLORIDE 0.9% 1,000 ML IV SCH ×2 (04:19→15:00)
[2019-10-03 05:49] LABS: Basophils % 0.2 % (0-1.3); Hematocrit 37.6 % (39.6-49.0); Lymphocytes % 7.5 % (15.3-44.8); MPV 8.7 fL (7.6-11.3); RBC Red Blood Cell Count 4.11 M/uL (4.33-5.43)
[2019-10-03 05:58] LABS: BUN Blood Urea Nitrogen 20 mg/dL (7-18); Bicarbonate 26 mmol/L (21-32); Glucose Level 104 mg/dL (74-106); Potassium 3.5 mmol/L (3.5-5.1); Sodium Level 143 mmol/L (136-145)
[2019-10-03 08:31] LABS: Blood Morphology Comment NOT SEEN (NOT SEEN); Platelet Estimate ADEQ
[2019-10-03] MEDS: PANTOPRAZOLE 40 MG INJ IVP SCH ×2 (08:38→21:07)
[2019-10-03] MEDS ORDERED: POTASSIUM 25 MEQ EFFERV TAB PO ONE (09:00)
--- NOTE | 2019-10-03 13:31 | P.PN ---
Subjective Date of Service: 10/03/19 Chief Complaint: Perforated appendix; history of Coronary artery disease Patient reports one bowel movement this morning. He has been tolerating clear liquid diet. He has been afebrile. Physical Examination - Vital Signs Temperature: 98.6 F Blood Pressure: 155/102 Pulse: 82 Respirations: 18 Pulse Ox (%): 91 - Physical Exam General: Alert, In no apparent distress, Oriented x3 HEENT: Mucous membr. moist/pink Neck: Supple, JVD not distended Respiratory: Clear to auscultation bilaterally, Normal air movement Cardiovascular: No edema, Regular rate/rhythm, Normal S1 S2 Gastrointestinal: Hypoactive, Non-distended, Other (Multiple ANA drains-draining serous fluid.) Musculoskeletal: No swelling Integumentary: No rashes Assessment And Plan - Current Problems (Diagnosis) (1) Intra-abdominal abscess Current Visit: Yes Status: Acute (2) Coronary artery disease Current Visit: Yes Status: Acute Qualifiers: Coronary Disease-Associated Artery/Lesion type: [place] artery (3) Hypertension Current Visit: Yes Status: Acute Qualifiers: Hypertension type: essential hypertension Qualified Code(s): I10 - Essential (primary) hypertension (4) Perforated appendix Current Visit: Yes Status: Acute - Plan Continue IV hydration and aggressive IV antibiotic therapy. Abscess culture growing Pseudomonas. Dr. Penn's input appreciated. The patient is slated for 2-3 weeks of IV antibiotics Continue IV Zosyn. Choice of outpatient antibiotics per Dr. Penn. PICC for antibiotics to be placed on Saturday. General surgery-Dr. Chaney is following and managing. IV hydromorphone p.r.n. for pain. DVT prophylaxis. Diet advancement per Dr. Chaney.
[2019-10-03] MEDS: ENOXAPARIN 30 MG/0.3 ML SQ SCH (17:18)
[2019-10-04] MEDS: HYDROMORPHONE HCL 0.5 MG/0.5 ML INJ IV PRN ×6 (00:52→20:55)
[2019-10-04] MEDS: PIPER/TAZO/NS 3.375gm 3.375 GM/100 ML BAG IVPB SCH ×3 (00:53→17:05)
[2019-10-04 05:35] LABS: Absolute Lymphocytes (CBC) 1.5 K/uL (0.7-4.9); Basophils % 0.4 % (0-1.3); Hematocrit 39.7 % (39.6-49.0); Lymphocytes % 10.1 % (15.3-44.8); MPV 8.4 fL (7.6-11.3); RBC Red Blood Cell Count 4.33 M/uL (4.33-5.43)
[2019-10-04 05:47] LABS: BUN Blood Urea Nitrogen 18 mg/dL (7-18); Bicarbonate 26 mmol/L (21-32); Glucose Level 95 mg/dL (74-106); Phosphorus 2.5 mg/dL (2.5-4.9); Potassium 3.6 mmol/L (3.5-5.1); Sodium Level 139 mmol/L (136-145)
[2019-10-04] MEDS ORDERED: POTASSIUM CL SA 10 MEQ TAB PO ONE (06:00)
[2019-10-04 06:18] LABS: Blood Morphology Comment NOT SEEN (NOT SEEN); Platelet Estimate ADEQ
[2019-10-04] MEDS: POTASS/SODIUM PHOSPHATE 1 PKT POWD.PACK PO SCH ×3 (06:34→09:10)
[2019-10-04] MEDS: NA CHLORIDE 0.9% 1,000 ML IV SCH ×3 (06:35→22:02)
[2019-10-04] MEDS: PANTOPRAZOLE 40 MG INJ IVP SCH ×2 (08:36→20:55)
--- NOTE | 2019-10-04 12:32 | P.PN ---
Subjective Date of Service: 10/04/19 Chief Complaint: Perforated appendix; history of Coronary artery disease Subjective: No new changes Patient reports no BM today but passing gas. He has been tolerating clear liquid diet. He stated his abdominal pain is much better. Physical Examination - Vital Signs Temperature: 97.5 F Blood Pressure: 171/98 Pulse: 71 Respirations: 20 Pulse Ox (%): 91 - Physical Exam General: Alert, In no apparent distress, Oriented x3 HEENT: Mucous membr. moist/pink Neck: Supple, JVD not distended Respiratory: Clear to auscultation bilaterally, Normal air movement Cardiovascular: No edema, Regular rate/rhythm, Normal S1 S2 Gastrointestinal: Hypoactive, Other ([address] and draining serous fluid.) Musculoskeletal: No swelling, No erythema Integumentary: No rashes Assessment And Plan - Current Problems (Diagnosis) (1) Intra-abdominal abscess Current Visit: Yes Status: Acute (2) Coronary artery disease Current Visit: Yes Status: Acute Qualifiers: Coronary Disease-Associated Artery/Lesion type: [place] artery (3) Hypertension Current Visit: Yes Status: Acute Qualifiers: Hypertension type: essential hypertension Qualified Code(s): I10 - Essential (primary) hypertension (4) Perforated appendix Current Visit: Yes Status: Acute - Plan Continue IV Zosyn. Abscess culture grew Pseudomonas. Dr. Penn's input appreciated. The patient is slated for 2-3 weeks of IV antibiotics Choice of outpatient antibiotics per Dr. Penn. PICC for antibiotics to be placed on Saturday. General surgery-Dr. Chaney is following and managing. IV hydromorphone p.r.n. for pain. DVT prophylaxis. Diet advancement per Dr. Chaney.
[2019-10-04] MEDS: ENOXAPARIN 30 MG/0.3 ML SQ SCH (17:05)
[2019-10-05] MEDS: PIPER/TAZO/NS 3.375gm 3.375 GM/100 ML BAG IVPB SCH ×3 (00:50→16:58)
[2019-10-05] MEDS: HYDROMORPHONE HCL 0.5 MG/0.5 ML INJ IV PRN ×4 (00:50→13:31)
[2019-10-05] MEDS: ONDANSETRON 4 MG/2 ML VIAL IV PRN (01:04)
[2019-10-05 04:35] LABS: Basophils % 0.4 % (0-1.3); Hematocrit 40.8 % (39.6-49.0); Lymphocytes % 10.6 % (15.3-44.8); MPV 8.4 fL (7.6-11.3)
[2019-10-05 04:38] LABS: BUN Blood Urea Nitrogen 15 mg/dL (7-18); Bicarbonate 26 mmol/L (21-32); Glucose Level 91 mg/dL (74-106); Phosphorus 3.3 mg/dL (2.5-4.9); Sodium Level 140 mmol/L (136-145)
[2019-10-05 05:17] LABS: Blood Morphology Comment NOTED (NOT SEEN); Burr Cells 2+; Platelet Estimate ADEQ
[2019-10-05] MEDS: PANTOPRAZOLE 40 MG INJ IVP SCH ×2 (09:20→21:45)
[2019-10-05] MEDS: NA CHLORIDE 0.9% 1,000 ML IV SCH ×3 (09:20→21:44)
[2019-10-05] MEDS ORDERED: MORPHINE 2 MG/ML SYR IV PRN (16:17)
--- NOTE | 2019-10-05 16:47 | RAD REPORT ---
EXAM DESCRIPTION: CT - Abdomen Pelvis W Contrast - 10/05/2019 4:26 pm CLINICAL HISTORY: r/o Abscess and Elevated WBC, recent appendectomy COMPARISON: CT study September 30 TECHNIQUE: Biphasic, helical CT imaging of the abdomen and pelvis was performed following 100 ml non -ionic IV contrast. Oral contrast was given. All CT scans are performed using dose optimization technique as appropriate and may include automated exposure control or mA/KV adjustment according to patient size. FINDINGS: Small to moderate bilateral pleural effusions are present with partial atelectasis of each lower lobe. No pericardial effusion. The liver, spleen, and pancreas show no suspicious findings. Contrast is present within the gallbladd er from prior imaging studies. Gallstones can be occult. No biliary tree dilatation. Symmetric renal function is seen with no hydronephrosis or suspicious renal mass. No pyelonephritis o r acute parenchymal process. No bladder abnormalities. No adrenal abnormalities. No gastric dilatation or gastric wall thickening. Duodenum is unremarkable. Multiple distended and di lated small bowel loops are present. No abrupt transition point identified. Oral contrast has reached the mid ileum. Small bowel dilatation is favored to be ileus rather than a small bowel obstruction. Drain tube remains in place in the lower right quadrant and pelvic floor. An acute or primary colon p rocess is not identifiable. Small amount of fluid is present along the medial margin of the appendectomy site and a small amount of fluid is present in the dependent portion of the pelvis. The larger collection near the appendecto my site is 4 cm in size. No thickened rim or rind at this time. Finding is not felt the at represent an abscess. Finding is still within range of normal for recent postoperative surgical fluid. No free air or pneumatosis. No mass or bulky lymphadenopathy. Fat filled inguinal hernias are presen t. No suspicious bony findings. IMPRESSION: No abscess identified at this time. Small fluid collections near the appendectomy site a nd in the lower pelvis believed to be postoperative fluid with some stranding. Neither fluid collecti on is suspected to be an abscess. Follow-up can be obtained to monitor for any progression. Multiple dilated small bowel loops without an abrupt transition point. Ileus is favored over bowel ob struction. Drain tubes remains in place in the right lower quadrant and pelvic floor.
[2019-10-05] MEDS: HYDROCODONE/APAP 7.5/325 MG TAB PO PRN ×2 (16:57→23:39)
[2019-10-05] MEDS: ENOXAPARIN 40 MG/0.4 ML SQ SCH (16:57)
--- NOTE | 2019-10-05 19:46 | PN ---
Subjective: Patient is lying in bed. No new complaints. Continues to have excessive drainage from his ANA drain. Objective: Vital Signs: Temperature 98.5, pulse 86, respirations 18, blood pressure 157/87. No danny nges in examination. Laboratory Data: WBC 18.9, hemoglobin 13.4, platelets 319. Chemistry shows sodium 144, potassium 4, chloride 107, bicarb 26, BUN 15, creatinine 0.59, glucose is 91. Micro Data: Abdominal wound is growing Pseudomonas aeruginosa and E coli. Medications: Patient is currently on Zosyn. Assessment And Plan: Status post appendix rupture and abdominal abscess I and D. Continue to be on Zosyn. Patient with increased leukocytosis. We will repeat CT scan of abdomen and pelvis to rule ou t any abscess formation, also to get procalcitonin. Continue supportive care and wound care. We trupti l follow patient as needed. NF/MODL Voice ID: [id number] Report ID: [id number]
--- NOTE | 2019-10-05 21:07 | PN ---
Date of Progress Note: 10/05/2019 Subjective: Patient seen and examined. Chart reviewed and case discussed with RN and Dr. Pnen as well as Dr. Chaney. Patient states his pain is better, able to tolerate his diet. No nausea, vomi ting. Physical Examination: Vital Signs: Temperature 97.4, heart rate 83, blood pressure 156/93, respirations 18, O2 of 92% on r oom air. General: Awake, alert, and oriented x3. No acute distress. CV: S1, S2. Regular rate and rhythm. Peripheral pulses present. Respiratory: Moving air well bilaterally. No wheezing or stridor. No use of accessory muscles. Gastrointestinal: Abdomen is soft. Mild tenderness to palpation around incision site. ANA drains in place with clear serous drainage. Positive bowel sounds. Extremities: No clubbing, cyanosis, or edema. Neuro: Cranial nerves 2 through 12 intact grossly. No focal neurological deficit. Speech is normal . Laboratory Data: Sodium 140, potassium 4.4, chloride 107, CO2 of 26, BUN 15, creatinine 0.59, glucos e 91, calcium 7.9, phosphorus 3.3. Procalcitonin 0.61. WBC 18.9, H and H 13.4 and 40.8, platelets 3 19, neutrophils 71%. Culture from the wound of the abdomen shows Pseudomonas aeruginosa and E coli. Body fluid from the abdomen anaerobic gram-negative rods, presumptive Bacteroides fragilis group. Assessment: A 49-year-old male with: 1.Acute intraabdominal abscess secondary to perforated appendix, now with I and D and drains in plac e secondary to Pseudomonas and E coli. We will continue with IV antibiotics. Patient will need a mi nimum of 2 weeks of IV antibiotics. White blood cell count is trending up with neutrophilia. We trupti l repeat CT abdomen to ensure no further abscess formation. Patient does have elevated procalcitonin level today. 2.Perforated appendix. Appreciate Dr. Chaney's input. Patient went for laparoscopic perforated a ppendectomy, drainage of intraabdominal abscess. 3.Coronary artery disease of [place] artery and [place] heart without angina, stable. Resume aspirin. If CT scan is negative, then no further need for intervention. 4.Essential hypertension, stable. Resume home medications. Plan: GI DVT prophylaxis addressed. Order PICC line. Social Work consultation for outpatient IV an tibiotics setup. 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 He will need to be set up with infusion therapy at home versus SNF. MALCOLM Voice ID: [id number] Report ID: [id number]
[2019-10-05] MEDS: ATORVASTATIN 40 MG TAB PO SCH (21:45)
[2019-10-06] MEDS: PIPER/TAZO/NS 3.375gm 3.375 GM/100 ML BAG IVPB SCH ×3 (01:03→16:30)
[2019-10-06 05:44] LABS: Absolute Lymphocytes (CBC) 1.9 K/uL (0.7-4.9); Basophils % 0.9 % (0-1.3); MPV 8.4 fL (7.6-11.3); RBC Red Blood Cell Count 4.14 M/uL (4.33-5.43)
[2019-10-06 06:00] LABS: ALT/SGPT 45 U/L (12-78); AST/SGOT 49 U/L (15-37); Albumin 1.8 g/dL (3.4-5.0); Alkaline Phosphatase 67 U/L (45-117); BUN Blood Urea Nitrogen 11 mg/dL (7-18); Bicarbonate 27 mmol/L (21-32); Glucose Level 91 mg/dL (74-106); Potassium 3.7 mmol/L (3.5-5.1); Protein, Total 5.3 g/dL (6.4-8.2); Sodium Level 139 mmol/L (136-145)
[2019-10-06] MEDS: NA CHLORIDE 0.9% 1,000 ML IV SCH (06:06)
[2019-10-06] MEDS: HYDROCODONE/APAP 7.5/325 MG TAB PO PRN ×3 (06:06→18:39)
[2019-10-06] MEDS ORDERED: POTASSIUM CL SA 10 MEQ TAB PO ONE (07:30)
[2019-10-06] MEDS: PANTOPRAZOLE 40 MG INJ IVP SCH (09:12)
[2019-10-06] MEDS: PANTOPRAZOLE 40MG TABLET PO SCH (16:26)
[2019-10-06] MEDS: ENOXAPARIN 40 MG/0.4 ML SQ SCH (16:27)
--- NOTE | 2019-10-06 17:53 | PN ---
Date of Progress Note: 10/06/2019 Subjective: Patient was seen and examined. Chart reviewed and case discussed with RN and Dr. Michael pearce. Patient is doing well. Pain is improved. The patient is ambulating. Medications: List reviewed. Physical Examination: Vital Signs: Temperature 97, heart rate 81, blood pressure 159/86, respirations 18, O2 saturation 91 % on room air. General: Awake, alert, oriented x3. Some mild distress due to pain. CV: S1, S2. Regular rate and rhythm. Peripheral pulses present. Respiratory: Moving air well bilaterally. No wheezing or stridor. Gastrointestinal: Abdomen is soft. Mild tenderness to palpation around the incision site. ANA drain s in place, clean, dry, intact. Serous drainage in the ANA drains. Extremities: No clubbing, cyanosis, or edema. Neurologic: Nonfocal. Laboratory Data: Sodium 139, potassium 3.7, chloride 107, CO2 of 27, BUN 11, creatinine 0.59, glucos e 91, calcium 7.6, total bilirubin 2, AST 49, ALT 45, albumin 1.8. Procalcitonin yesterday was 0.61. WBC 14.7, H and H 12.9, 38, platelets 360, neutrophils 70%. Wound cultures growing out Pseudomonas and E coli. Repeat CT scan from yesterday shows no abscess identified at this time. Small fluid co llections noted at the appendectomy site and in the lower pelvis, believed to be postoperative fluid with some stranding. Neither fluid collection suspected to be an abscess. Assessment: 49-year-old male with: 1.Acute intraabdominal abscess secondary to perforated appendix, status post I and D, currently with drains in place. Cultures are growing out Pseudomonas and Escherichia coli. We will continue with Zosyn. Appreciate ID input. Patient will need 2 weeks of IV antibiotics. PICC line still pending. We will discuss with his primary care physician in [place]. Repeat CT scan did not show any furth er abscess formation. White count is trending down today, does have minimally elevated procalcitonin level. 2.Perforated appendix, status post preferred appendectomy and drainage of abscess. Dr. Chaney on board. Continue with IV antibiotics. 3.Coronary artery disease of [place] artery and elem heart without angina, stable. We will resume aspirin. 4.Essential hypertension, stable. 5.Deep vein thrombosis prophylaxis addressed. Plan: PICC line placement. Outpatient IV antibiotics. Working with adult protective caseworker to set up IV antib iotics in [place]. Patient was only here temporally for work. Discharged once cleared by Surgery and PICC line has been placed and IV antibiotics have been set up. MALCOLM Voice ID: [id number] Report ID: [id number]
[2019-10-06] MEDS: METOPROLOL XL 25 MG TAB PO SCH (20:26)
[2019-10-06] MEDS: ATORVASTATIN 40 MG TAB PO SCH (20:27)
[2019-10-07] MEDS: NA CHLORIDE 0.9% 1,000 ML IV SCH ×3 (01:00→16:34)
[2019-10-07] MEDS: HYDROCODONE/APAP 7.5/325 MG TAB PO PRN ×4 (01:01→20:28)
[2019-10-07] MEDS: PIPER/TAZO/NS 3.375gm 3.375 GM/100 ML BAG IVPB SCH ×3 (01:01→16:34)
[2019-10-07 04:30] LABS: Absolute Lymphocytes (CBC) 1.7 K/uL (0.7-4.9); Basophils % 0.4 % (0-1.3); Lymphocytes % 10.3 % (15.3-44.8); MPV 8.5 fL (7.6-11.3); RBC Red Blood Cell Count 3.94 M/uL (4.33-5.43)
[2019-10-07 04:41] LABS: ALT/SGPT 40 U/L (12-78); AST/SGOT 41 U/L (15-37); Albumin 1.7 g/dL (3.4-5.0); Alkaline Phosphatase 62 U/L (45-117); BUN Blood Urea Nitrogen 10 mg/dL (7-18); Bicarbonate 27 mmol/L (21-32); Bilirubin Total 1.6 mg/dL (0.2-1.0); Glucose Level 86 mg/dL (74-106); Potassium 3.6 mmol/L (3.5-5.1); Protein, Total 5.4 g/dL (6.4-8.2); Sodium Level 140 mmol/L (136-145)
[2019-10-07 05:17] LABS: Blood Morphology Comment NOT SEEN (NOT SEEN); Platelet Estimate ADEQ; Urine White Blood Cell Casts OK
--- NOTE | 2019-10-07 07:23 | RAD REPORT ---
EXAM DESCRIPTION: RAD - Chest Single View - 10/06/2019 11:36 pm COMPARISON: None. TECHNIQUE: AP portable chest image was obtained . FINDINGS: Lungs are clear. Heart and vasculature are normal. No measurable pleural effusion and no p neumothorax. No acute bony abnormality seen. No acute aortic findings suspected. IMPRESSION: No acute cardiopulmonary process.
[2019-10-07] MEDS: ASPIRIN EC 81 MG TAB PO SCH (07:41)
[2019-10-07] MEDS: METOPROLOL XL 25 MG TAB PO SCH ×2 (07:41→20:27)
[2019-10-07] MEDS: CLOPIDOGREL 75 MG TABLET PO SCH (07:41)
[2019-10-07] MEDS: PANTOPRAZOLE 40MG TABLET PO SCH ×2 (07:42→16:33)
[2019-10-07] MEDS ORDERED: POTASSIUM CL SA 10 MEQ TAB PO ONE (08:00)
--- NOTE | 2019-10-07 14:35 | PN ---
Date of Progress Note: 10/07/2019 Subjective: Patient is seen and examined. Chart reviewed and case discussed with RN and Case Manage r. Attempted to call clinic in [place] to expedite set up of IV antibiotics. Medications: List reviewed. Physical Examination: Vital Signs: Temperature 98, heart rate 72, blood pressure 155/94, respirations 19, O2 94% on room a ir. General: Awake, alert, oriented x3, not in any acute distress. CV: S1, S2. Regular rate and rhythm. Peripheral pulses present. Respiratory: Moving air well bilaterally. No wheezing or stridor. Gastrointestinal: Abdomen is soft. Tenderness to palpation around the incision site. No rebound or guarding. ANA drains in place with serous drainage. Extremities: No clubbing, cyanosis, or edema. Neurologic: Nonfocal. Laboratory Data: Sodium 140, potassium 3.6, chloride 106, CO2 of 27, BUN 10, creatinine 0.57, glucos e 86, calcium 7.6, total bilirubin 1.6, AST 41, ALT 40, albumin 1.7. WBC 16.9, H and H 12.2 and 36, platelets 347, neutrophils 76%. Wound cultures growing out Pseudomonas aeruginosa and E coli. Chest x-ray shows no acute cardiopulmonary process. Assessment: 49-year-old male with; 1.Acute intraabdominal abscess secondary to perforated appendix, status post I and D. Currently, dr knight are in place with serous drainage. Cultures are positive for Pseudomonas and Escherichia coli. Patient is on Zosyn. Patient will need minimum of 2 weeks of IV antibiotics. PICC line was placed last night. Attempting to coordinate IV antibiotics set up in [place] through his clinic. Spoke w obed Cramer, nurse practitioner, who was taking care of him. Patient's white blood cell count again trending up today. No fevers. Repeat CT scan did not show worsening of abscess. We will cont inue monitoring. 2.Perforated appendix, status post perforated appendectomy and drainage of abscess by Dr. Chaney. Continue with IV antibiotics. 3.Coronary artery disease, [place] artery and [place] heart without angina, stable. 4.Essential hypertension, stable. 5.Elevated liver enzymes, improving. 6.Hyperbilirubinemia, improving, trending down. 7.Deep venous thrombosis prophylaxis with Lovenox. Plan: Discharge once IV antibiotics have been set up in [place]. SA/MODL Voice ID: [id number] Report ID: [id number]
[2019-10-07] MEDS: ENOXAPARIN 40 MG/0.4 ML SQ SCH (16:33)
--- NOTE | 2019-10-07 16:50 | P.PN ---
Date of Service: 10/07/19 Spoke to and today Lily Marquez. She is a provider at [facility] urgent [facility] [place] in [place]. She has taken care of the patient in the past. Ms. Marquez has the records faxed from our facility. She however can not set up IV abx for him as there are no social workers at the clinic. She is willing to follow labs and adjust Abx dose if needed once IV therapy is set up. residential support worker informed. Best course of action may be to complete IV abx at SNF locally prior to patient returning home to [place].
[2019-10-07] MEDS: DOXYCYCLINE 100 MG in NA CHLORIDE 0.9% 100 ML IVPB SCH (17:30)
[2019-10-07] MEDS: ATORVASTATIN 40 MG TAB PO SCH (20:28)
[2019-10-08] MEDS: PIPER/TAZO/NS 3.375gm 3.375 GM/100 ML BAG IVPB SCH ×3 (03:08→17:54)
[2019-10-08] MEDS: HYDROCODONE/APAP 7.5/325 MG TAB PO PRN ×3 (03:46→17:54)
[2019-10-08] MEDS: NA CHLORIDE 0.9% 1,000 ML IV SCH ×2 (05:00→18:20)
[2019-10-08] MEDS: DOXYCYCLINE 100 MG in NA CHLORIDE 0.9% 100 ML IVPB SCH ×3 (05:00→22:00)
[2019-10-08 05:36] LABS: Absolute Lymphocytes (CBC) 1.3 K/uL (0.7-4.9); Basophils % 0.7 % (0-1.3); Hematocrit 36.6 % (39.6-49.0); MPV 8.4 fL (7.6-11.3); RBC Red Blood Cell Count 4.01 M/uL (4.33-5.43)
[2019-10-08 05:54] LABS: ALT/SGPT 51 U/L (12-78); AST/SGOT 55 U/L (15-37); Albumin 1.8 g/dL (3.4-5.0); Alkaline Phosphatase 92 U/L (45-117); BUN Blood Urea Nitrogen 7 mg/dL (7-18); Bicarbonate 28 mmol/L (21-32); Bilirubin Total 1.5 mg/dL (0.2-1.0); Glucose Level 109 mg/dL (74-106); Potassium 3.9 mmol/L (3.5-5.1); Protein, Total 5.8 g/dL (6.4-8.2); Sodium Level 137 mmol/L (136-145)
[2019-10-08] MEDS ORDERED: POTASSIUM CL SA 10 MEQ TAB PO ONE (08:00)
[2019-10-08] MEDS: PANTOPRAZOLE 40MG TABLET PO SCH ×2 (09:00→16:50)
[2019-10-08] MEDS: CLOPIDOGREL 75 MG TABLET PO SCH (09:00)
[2019-10-08] MEDS: ASPIRIN EC 81 MG TAB PO SCH (09:00)
[2019-10-08] MEDS: METOPROLOL XL 25 MG TAB PO SCH ×2 (09:00→21:46)
--- NOTE | 2019-10-08 09:39 | PN ---
Subjective: Patient is lying in bed. No new acute event. Chart reviewed. Objective: Vital signs: Temperature 98, pulse 72, respirations 19, blood pressure 155/94. Lungs: Clear to auscultation. Heart: S1, S2 regular. Abdomen: Soft. Bowel sounds present. ANA drains in place. Continue to have serosanguineous drainag e from both ANA drains. Laboratory Data: WBC 16.9, hemoglobin 12.2, platelets are 347. Chemistry shows sodium 140, potassiu m 3.6, chloride 106, bicarb 27, BUN 10, creatinine 0.57, glucose is 86. CT abdomen done on 10/05 gunjan ws no abscess identified at the time. Small fluid collection near the appendectomy site in the lower pelvis believed to be postoperative fluid with some stranding, near fluid collection is suspected to be an abscess. Multiple dilated small bowel loops without an abrupt transition point. Ileus is fav ored over the bowel obstruction. Drain tubes remain in place in the right lower quadrant and pelvic floor. Chest x-ray done yesterday shows no acute pulmonary disease. Assessment And Plan: Status post appendix rupture and abscess incised and drained. Patient is tyrel nued to have ANA drains, leukocytosis worsening. Patient remains clinically stable. We will continue empiric antibiotic with Zosyn and add vancomycin to it. We will follow the patient closely. NF/MODL Voice ID: [id number] Report ID: [id number]
[2019-10-08] MEDS: ENOXAPARIN 40 MG/0.4 ML SQ SCH (17:05)
--- NOTE | 2019-10-08 19:37 | PN ---
Date of Progress Note: 10/08/2019 Subjective: Patient seen and examined. Chart reviewed and case discussed with RN. Patient denies a ny significant abdominal pain. No nausea or vomiting. Patient afebrile overnight. Medications: List reviewed. Physical Examination: Vital Signs: Temperature 98.1, heart rate 77, blood pressure 138/89, respirations 18, O2 95% on room air. General: Awake, alert, oriented x3, not in any acute distress. CV: S1 and S2. Regular rate and rhythm. Peripheral pulses present. Respiratory: Moving air well bilaterally. No wheezing or stridor. No use of accessory muscles. Gastrointestinal: Abdomen is soft. Tenderness to palpation around the incision site. ANA drains in place with serous drainage. Incision site clean, dry, intact. Positive bowel sounds. Extremities: No clubbing, cyanosis, or edema. Neurologic: Nonfocal. Laboratory Data: Sodium 137, potassium 3.9, chloride 105, CO2 of 28, BUN 7, creatinine 0.61, glucose 109, calcium 7.9, AST 55, ALT 51, alkaline phosphatase 92, total bilirubin 1.5, albumin 1.8. WBC 16 .4, H and H 12.3 and 36.6, platelets 389, neutrophils 79%. Wound cultures growing out Pseudomonas ae ruginosa and Escherichia coli. Assessment And Plan: A 49-year-old male with: 1.Acute intraabdominal abscess secondary to perforated appendix, status post I and D. Patient growi ng out pseudomonas and Escherichia coli. WBC count still trending up, currently close to 17,000. Va ncomycin has been added. We will continue to monitor for signs of sepsis. We will recheck procalcit onin level. Patient will need a minimum of 2 weeks of IV antibiotics if not longer. PICC line is in place. Still attempting to coordinate with his clinic in [place]. ANA drain still in place with d paula present. 2.Perforated appendix, status post appendectomy and drainage of abscess by Dr. Chaney. Continue a ntibiotic treatment. 3.Coronary artery disease, [place] artery and [place] heart without angina, stable. Continue Plavix. 4.Essential hypertension, stable. 5.Elevated liver enzymes, improving. AST is still mildly elevated at 55. 6.Hyperbilirubinemia, elevated. We will check ultrasound of abdomen. 7.Deep venous thrombosis prophylaxis with Lovenox. 8.Severe protein-calorie malnutrition, albumin less than 2. SA/MODL Voice ID: [id number] Report ID: [id number]
[2019-10-08] MEDS: ATORVASTATIN 40 MG TAB PO SCH (21:46)
[2019-10-08] MEDS ORDERED: DOXYCYCLINE HYCLATE 100MG INJ ONE (23:09)
[2019-10-08] MEDS ORDERED: NA CHLORIDE 0.9% 100 ML IV ONE (23:10)
[2019-10-09] MEDS: HYDROCODONE/APAP 7.5/325 MG TAB PO PRN ×3 (00:16→18:07)
[2019-10-09] MEDS: PIPER/TAZO/NS 3.375gm 3.375 GM/100 ML BAG IVPB SCH ×3 (00:16→16:19)
[2019-10-09 05:26] LABS: BUN Blood Urea Nitrogen 6 mg/dL (7-18); Bicarbonate 26 mmol/L (21-32); Glucose Level 86 mg/dL (74-106); Potassium 3.5 mmol/L (3.5-5.1); Sodium Level 142 mmol/L (136-145)
[2019-10-09] MEDS ORDERED: POTASSIUM CL SA 10 MEQ TAB PO ONE (07:30)
[2019-10-09] MEDS: NA CHLORIDE 0.9% 1,000 ML IV SCH ×3 (07:40→20:04)
[2019-10-09] MEDS: ASPIRIN EC 81 MG TAB PO SCH (08:24)
[2019-10-09] MEDS: METOPROLOL XL 25 MG TAB PO SCH ×2 (08:24→20:02)
[2019-10-09] MEDS: CLOPIDOGREL 75 MG TABLET PO SCH (08:24)
[2019-10-09] MEDS: PANTOPRAZOLE 40MG TABLET PO SCH ×2 (08:24→16:19)
[2019-10-09 09:40] LABS: Absolute Lymphocytes (CBC) 1.3 K/uL (0.7-4.9); Basophils % 0.8 % (0-1.3); Hematocrit 36.8 % (39.6-49.0); MPV 8.2 fL (7.6-11.3)
[2019-10-09 10:22] LABS: Blood Morphology Comment NOT SEEN (NOT SEEN); Platelet Estimate ADEQ; Urine White Blood Cell Casts OK
[2019-10-09] MEDS: DOXYCYCLINE 100 MG in NA CHLORIDE 0.9% 100 ML IVPB SCH ×2 (10:33→20:02)
[2019-10-09 12:04] VITALS: O2SAT 95
[2019-10-09] MEDS: ENOXAPARIN 40 MG/0.4 ML SQ SCH (16:19)
[2019-10-09] MEDS: ATORVASTATIN 40 MG TAB PO SCH (20:02)
--- NOTE | 2019-10-09 21:38 | PN ---
Date of Progress Note: 10/09/2019 History: Patient seen and examined. Chart reviewed and case discussed with RN and Case Management rubi leblanc well as Dr. Chaney. Patient denies any acute events. No abdominal pain. Tolerating diet. No f ever. Medications: List reviewed. Physical Examination: Vital Signs: Temperature 97.8, heart rate 68, blood pressure 144/83, respirations 16, O2 94% on room air. General: Awake, alert, and oriented x3. No acute distress. CV: S1, S2. Regular rate and rhythm. Peripheral pulses present. Respiratory: Moving air well bilaterally. No wheezing or stridor. No use of accessory muscles. Gastrointestinal: Abdomen is soft. No distention. Mild tenderness to palpation around the incision site clean, dry, intact. ANA drains in place. Bowel sounds positive. Extremities: No clubbing, cyanosis, or edema. Neurologic: Nonfocal. Laboratory Data: Sodium 142, potassium 3.5, chloride 111, CO2 of 26, BUN 6, creatinine 0.52, glucose 86, calcium 7. Procalcitonin 0.13. WBC 14.5, H and H 12.7 and 36.8, platelets 423. Wound cultures growing out Pseudomonas and E coli. Assessment: A 49-year-old male with, 1.Acute intraabdominal abscess secondary to perforated appendix, status post I and D, and now growin g out Pseudomonas and E coli. WBC count improved down to 14. Vancomycin has been added. We will re peat culture from the abdominal wound fluid. Procalcitonin is negative, afebrile. Doubt any sepsis. Repeat CT scan on the did not show any abscess. Patient will need minimum of 2 weeks of IV an tibiotics and likely a total of 4 weeks of IV antibiotics depending on his clinical status coordinati ng with [facility] and [employer] for IV antibiotics. Patient will be followed by Dr. Perkins and nurse practitioners at a [facility], who will follow up with labs. Th melissa will need to coordinate with Dr. Chaney over the phone regarding his ANA drains and repeat CT sca n next week. Antibiotics may need to be adjusted depending on renal status. 2.Perforated appendix status post appendectomy and drainage of abscess by Dr. Chaney. Continue an tibiotic treatment. 3.Coronary artery disease [place] artery and [place] heart without angina, stable. Continue Plavix. 4.Essential hypertension, stable. 5.Elevated liver enzymes. We will continue to monitor likely related to intraabdominal abscess. 6.Hyperbilirubinemia. No further need for ultrasound. Repeat CT was negative. 7.Deep venous thrombosis prophylaxis with Lovenox. 8.Severe protein-calorie malnutrition, albumin less than 2. Encourage protein intake and supplement s. Plan: Discharge once IV antibiotics have been set up and coordinate with home health agency and clin ic in [place]. MALCOLM Voice ID: [id number] Report ID: [id number]
[2019-10-10] MEDS: PIPER/TAZO/NS 3.375gm 3.375 GM/100 ML BAG IVPB SCH ×2 (00:05→09:16)
[2019-10-10 04:59] LABS: Absolute Lymphocytes (CBC) 1.9 K/uL (0.7-4.9); Basophils % 0.6 % (0-1.3); Hematocrit 34.3 % (39.6-49.0); Lymphocytes % 15.4 % (15.3-44.8); MPV 8.4 fL (7.6-11.3); RBC Red Blood Cell Count 3.72 M/uL (4.33-5.43)
[2019-10-10 05:10] LABS: ALT/SGPT 51 U/L (12-78); AST/SGOT 35 U/L (15-37); Albumin 1.7 g/dL (3.4-5.0); Alkaline Phosphatase 78 U/L (45-117); BUN Blood Urea Nitrogen 6 mg/dL (7-18); Bicarbonate 27 mmol/L (21-32); Bilirubin Total 0.9 mg/dL (0.2-1.0); Glucose Level 91 mg/dL (74-106); Potassium 3.4 mmol/L (3.5-5.1); Protein, Total 6.1 g/dL (6.4-8.2); Sodium Level 144 mmol/L (136-145)
[2019-10-10] MEDS ORDERED: POTASSIUM CL SA 10 MEQ TAB PO ONE (08:00)
[2019-10-10] MEDS: PANTOPRAZOLE 40MG TABLET PO SCH (09:16)
[2019-10-10] MEDS: ASPIRIN EC 81 MG TAB PO SCH (09:16)
[2019-10-10] MEDS: METOPROLOL XL 25 MG TAB PO SCH (09:17)
[2019-10-10] MEDS: CLOPIDOGREL 75 MG TABLET PO SCH (09:17)
[2019-10-10] MEDS: DOXYCYCLINE 100 MG in NA CHLORIDE 0.9% 100 ML IVPB SCH (11:08)
[2019-10-10 12:50] VITALS: BP 149/79; TEMP 98.6
--- NOTE | 2019-10-10 16:36 | PN ---
Date of Progress Note: 10/10/2019 Subjective: Patient is seen and examined. Chart reviewed and case discussed with RN. Patient doing well. No acute events overnight. Has been in touch with home health agency. Antibiotics have been delivered. Medications: List reviewed. Physical Examination: Vital Signs: Temperature 98.3, heart rate 74, blood pressure 157/87, respirations 18, O2 95% on room air. General: Awake, alert, oriented x3, not in any acute distress. CV: S1, S2. Regular rate and rhythm. Respiratory: Moving air well bilaterally. No wheezing. Gastrointestinal: Abdomen is soft, nontender, nondistended. Positive bowel sounds. ANA drain is in place. Extremities: No clubbing, cyanosis, or edema. Neurologic: Nonfocal. Laboratory Data: Sodium 144, potassium 3.4, chloride 109, CO2 of 27, BUN 6, creatinine 0.58, glucose 91, calcium 7.6, total bilirubin 0.9. AST 35, ALT 51, albumin 1.7. WBC 12.2, H and H 11.6 and 34.3 , platelets 441. Wound cultures from the abdomen growing out pseudomonas and E coli. Body fluid fro m the abdomen growing out Bacteroides fragilis. Assessment: 49-year-old male with: 1.Acute intraabdominal abscess secondary to perforated appendix, status post incision and drainage. Positive cultures with pseudomonas and Escherichia coli. WBC count now trending down, currently at 12.2. Procalcitonin negative. No signs of sepsis. ANA drains are continue to drain serous fluid. R epeat CT scan next week and repeat labs as well. 2.Perforated appendix, status post perforated appendectomy and drainage of abscess by Dr. Chaney. Continue intravenous antibiotics for a total of 2 weeks. May need antibiotics for 4 weeks if not im proving. 3.Coronary artery disease, [place] artery and [place] heart without angina, stable. Continue Plavix. 4.Essential hypertension, stable. 5.Elevated liver enzymes, resolved. Bilirubin is also corrected. 6.Severe protein-calorie malnutrition. Albumin less than 2. We will continue with protein suppleme nts. 7.Deep venous thrombosis prophylaxis with Lovenox. Plan: Patient was set up for antibiotics and to be discharged today, however, now states that his re [employer] company closes at noon, unable to go. We will discuss with Case Management regarding option s. Stable from medical standpoint for discharge. SA/MODL Voice ID: [id number] Report ID: [id number]
--- NOTE | 2019-10-11 05:21 | DS ---
Date of Discharge: 10/10/2019 Consultants: 1.Dr. Penn with Infectious Disease. 2.Dr. Booth with Cardiology. 3.Dr. Chaney with General Surgery. Procedures: On 09/30/2019, laparoscopic perforated appendectomy, drainage of intraabdominal diffuse abscess. Admitting Diagnoses: 1.Perforated appendix. 2.Coronary artery disease. 3.Hypertension. 4.Dyslipidemia. 5.Tobacco use. Discharge Diagnoses: 1.Acute intraabdominal abscess secondary to perforated appendix status post incision and drainage gr owing out Pseudomonas and E coli. 2.Perforated appendix, status post perforated appendectomy and drainage of abscess. 3.Coronary artery disease [place] artery and [place] heart without angina, stable. 4.Essential hypertension, stable. 5.Elevated liver enzymes, normalized. 6.Hyperbilirubinemia, normalized. 7.Severe protein-calorie malnutrition, albumin less than 2. 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 Patient was found to have perforated isha endix. General Surgery was consulted. Patient was started on IV antibiotics, the patient was taking for perforated appendectomy and drainage of abscess. Patient did well postoperatively. He did not have any signs of sepsis. His initial white count was 18.9, did improve with treatment. The patient 's cultures grew out Pseudomonas aeruginosa and E coli. Patient was on Zosyn. Body fluid of the abd omen grew out bacteroides fragilis, which is typically sensitive to Zosyn. Patient did have some mil d electrolyte abnormalities, which were corrected. He did develop severe protein-calorie malnutritio n. He was started on supplements. His Plavix was restarted after he was stable with surgery. Proca lcitonin was initially elevated then normalized due to his spikes in WBC count. CT scan of the abdom en was repeated. No further abscess was seen. Infectious Disease, Dr. Penn was consulted. Antibi otics were adjusted. Patient overall did well. Due to the fact that he is from [place], IV antibi otic setup was challenging, had to be done across state lines. Multiple infusion companies were cont acted by social work. I also spoke multiple times with the patient's nurse practitioner, Lily mayo, who is under Dr. Perkins at [facility], which is a clinic where he has been avril ated in the past. They agreed to monitor his labs as well as adjust his antibiotic dose depending on renal clearance. He will need to have weekly CBC, CMP, ESR, and CRP. He will need to have repeat C T scan next week. His physician will need to contact Dr. Chaney in order to coordinate care regard ing his ANA drains, which remained in place until the drainage has improved. He will also need contin ued wound care. Home health and infusion company were set up, IV antibiotics were delivered, and he was taught how to get antibiotics through the infusion company. Arrangements were made for travel. Patient declined flying, which would be the most convenient and rapid method of transportation. He s tates that he has luggage with him, which may not be able to be taken on the flight as well as he has fear of flying. Patient then arranged for transport through [facility] and care with surgery if he drives. The patient will likely need to have infusion started in the middle of travel. He states he will either step in a hotel or will have infusion started with [id number] process provided by the infusion company to have his evening dose of antibiotics. Home health will be available once patient reaches home. Patient understands that he was very ill with a perforated appendix with severe burde n of bacteria that entered his abdominal cavity. He has drains in place. He will need to continue I V antibiotics and continued wound care as well as physician follow up. Patient was then discharged o nce his IV antibiotics and infusion was set up. Patient will finish off course of Zosyn 3.375 g IV q .8 hours for a total of 2 weeks. He may need to prolong his IV antibiotic therapy to 4 weeks if his clinical picture deems necessary. This will be determined by the physician taking over his care in [facility] with repeat labs and CT, repeat imaging as well as coordination with surgeon, Dr. Chaney, and clinical picture. Followup: Follow up with primary care physician in 2-3 days in [place]. Follow up with surgeon in [address] scan of abdomen in 1 week. Weekly CBC, CMP, ESR, and CRP. [facility] Return to ER for worsening condition. Activity: As tolerated. Patient was counseled extensively to stop smoking, which he understands can delay wound healing. For physical exam findings please see progress note dictated on the day of discharge. Total time spent discharging the patient was 45 minutes. /GEO Voice ID: [id number] Report ID: [id number]
== END 2019-10-10 12:40 | disposition home health service (06) | DRG 338 ==
LOC: ER 02:35 → ERHOLD 06:33 → 4TH 07:55
PROVIDERS: ADMIT Hospitalist; ATTEND Hospitalist
PROC: 0W9G40Z Drainage of Peritoneal Cavity with Drainage Device, Percutaneous Endoscopic Approach (ICD-10-PCS; 2019-09-30)
PROC: 0DTJ4ZZ Resection of Appendix, Percutaneous Endoscopic Approach (ICD-10-PCS; principal; 2019-09-30 16:15)
PROC: 02HV33Z Insertion of Infusion Device into Superior Vena Cava, Percutaneous Approach (ICD-10-PCS; 2019-10-06)
DX: K35.33 Acute appendicitis with perforation, localized peritonitis, and gangrene, with abscess (principal); E43 Unspecified severe protein-calorie malnutrition; I25.10 Atherosclerotic heart disease of native coronary artery without angina pectoris; E78.5 Hyperlipidemia, unspecified; I10 Essential (primary) hypertension; B96.5 Pseudomonas (aeruginosa) (mallei) (pseudomallei) as the cause of diseases classified elsewhere; B96.20 Unspecified Escherichia coli [E. coli] as the cause of diseases classified elsewhere; R74.8 Abnormal levels of other serum enzymes; E80.6 Other disorders of bilirubin metabolism; Z68.27 Body mass index [BMI] 27.0-27.9, adult; F17.210 Nicotine dependence, cigarettes, uncomplicated; Z95.5 Presence of coronary angioplasty implant and graft
CPT/HCPCS: 36415; 71045; 74177; 80048; 80053; 80076; 81003; 81015; 83690; 83735; 84100; 84145; 85025; 87070; 87075; 87077; 87186; 87205; 88304; 93005; 96361; 96365; 96375; 99285; C9113; J0330; J1170; J1650; J2250; J2405; J2543; J2704; J2710; J3010; J7030; Q9967